=== PATIENT | female | born 1955 | race Caucasian/White ===

== ENCOUNTER → 2016-05-11 | Outpatient (REF) | payer BC ==
[2016-05-11 11:13] LABS: MICROSCOPIC INDICATED? MAN YES (NO)
[2016-05-11 11:14] LABS: MEAN CORPUSCULAR HEMOGLOBIN 31.6 pg (27.0-33.0); MEAN CORPUSCULAR HGB CONC 34.9 g/dl (32.0-36.5); MEAN CORPUSCULAR VOLUME 90.4 fl (80.0-96.0); RED CELL DISTRIBUTION WIDTH 12.3 % (11.5-14.5); WHITE BLOOD COUNT 8.3 K/mm3 (4.0-10.0)
[2016-05-11 11:26] LABS: BACTERIA, URINE MOD AMOUNT; HYALINE CAST, URINE NONE SEEN /lpf (0-1); SQUAMOUS EPITHELIAL CELL URINE LARGE AMOUNT /hpf (SMALL AMT)
[2016-05-11 11:27] LABS: MICROSCOPIC EXAM PERFORMED
[2016-05-11 11:39] LABS: ALBUMIN 3.6 GM/DL (3.2-5.2); ALBUMIN/GLOBULIN RATIO 1.09 (1.00-1.93); ALKALINE PHOSPHATASE 84 U/L (45-117); ALT/SGPT 23 U/L (12-78); ANION GAP 8 MEQ/L (8-16); AST/SGOT 16 U/L (15-37); BILIRUBIN,TOTAL 0.5 MG/DL (0.2-1.0); BLOOD UREA NITROGEN 11 MG/DL (7-18); CALCIUM LEVEL 8.9 MG/DL (8.5-10.1); CARBON DIOXIDE LEVEL 33 MEQ/L (21-32); CHLORIDE LEVEL 103 MEQ/L (98-107); CHOLESTEROL LEVEL 170 MG/DL (<200); GLOMERULAR FILTRATION RATE > 60.0 (>51); GLUCOSE, FASTING 124 MG/DL (70-105); POTASSIUM SERUM 3.5 MEQ/L (3.5-5.1); SODIUM LEVEL 144 MEQ/L (136-145); TOTAL PROTEIN 6.9 GM/DL (6.4-8.2); TRIGLYCERIDES LEVEL 207 MG/DL (<150)
== END ==
LOC: M SFHCLERA 08:11
PROVIDERS: ATTEND Family Medicine
DX: I10 Essential (primary) hypertension (principal); E78.2 Mixed hyperlipidemia; E55.9 Vitamin D deficiency, unspecified

== ENCOUNTER → 2016-06-29 | Outpatient (REF) | payer BC | LOC: M SFHCLERA 10:25 | PROVIDERS: ATTEND Family Medicine | DX: Z53.8 Procedure and treatment not carried out for other reasons (principal); R73.02 Impaired glucose tolerance (oral); E78.2 Mixed hyperlipidemia; E55.9 Vitamin D deficiency, unspecified ==

== ENCOUNTER → 2016-08-31 | Outpatient (REF) | payer BC ==
[2016-08-31 11:31] LABS: MEAN CORPUSCULAR HEMOGLOBIN 31.8 pg (27.0-33.0); MEAN CORPUSCULAR HGB CONC 34.3 g/dl (32.0-36.5); MEAN CORPUSCULAR VOLUME 92.8 fl (80.0-96.0); RED CELL DISTRIBUTION WIDTH 12.6 % (11.5-14.5); WHITE BLOOD COUNT 6.6 K/mm3 (4.0-10.0)
[2016-08-31 11:46] LABS: ALBUMIN 3.5 GM/DL (3.2-5.2); ALBUMIN/GLOBULIN RATIO 1.13 (1.00-1.93); ALKALINE PHOSPHATASE 73 U/L (45-117); ALT/SGPT 28 U/L (12-78); ANION GAP 7 MEQ/L (8-16); AST/SGOT 20 U/L (15-37); BILIRUBIN,TOTAL 0.5 MG/DL (0.2-1.0); BLOOD UREA NITROGEN 11 MG/DL (7-18); CALCIUM LEVEL 8.8 MG/DL (8.5-10.1); CARBON DIOXIDE LEVEL 31 MEQ/L (21-32); CHLORIDE LEVEL 105 MEQ/L (98-107); CHOLESTEROL LEVEL 166 MG/DL (<200); CREATININE FOR GFR 0.62 MG/DL (0.55-1.02); GLOMERULAR FILTRATION RATE > 60.0 (>51); GLUCOSE, FASTING 123 MG/DL (70-105); POTASSIUM SERUM 3.7 MEQ/L (3.5-5.1); SODIUM LEVEL 143 MEQ/L (136-145); TOTAL PROTEIN 6.6 GM/DL (6.4-8.2); TRIGLYCERIDES LEVEL 170 MG/DL (<150)
== END ==
LOC: M SFHCLERA 08:11
PROVIDERS: ATTEND Family Medicine
DX: R73.02 Impaired glucose tolerance (oral) (principal); E78.2 Mixed hyperlipidemia; E55.9 Vitamin D deficiency, unspecified

== ENCOUNTER → 2017-02-01 | Outpatient (CLI) | payer BC ==
--- NOTE | 2017-02-01 15:24 | REP ---
THORACIC SPINE, THREE VIEWS: HISTORY: Pain. There is no acute fracture or subluxation. The intervertebral discs are normal in height. Anterior osteophytes are present in the mid and lower thoracic spine. IMPRESSION: Degenerative change as described above. Signed by Kody Casiano MD 02/01/2017 03:30 P
--- NOTE | 2017-02-01 16:17 | REP ---
CERVICAL SPINE, SEVEN VIEWS: HISTORY: Neck pain. The cervical spine is visualized from C1-2 to C6-7 level in the lateral radiographs. There is no acute fracture or subluxation. The C4-5 through C5-6 intervertebral discs are decreased in height consistent with disc degeneration. Osteophytes are present on the C4 through 6. There is narrowing of the C5 neural foramina secondary to uncinate process hypertrophy. IMPRESSION: Degenerative change as described above. Signed by Kody Casiano MD 02/01/2017 04:19 P
== END ==
LOC: M WUC 14:21
PROVIDERS: ATTEND Family Medicine
DX: M51.36 Other intervertebral disc degeneration, lumbar region (principal); M54.2 Cervicalgia; M54.6 Pain in thoracic spine

== ENCOUNTER → 2017-03-22 | Outpatient (CLI) | payer OTHER ==
[~2017-03-22] MED LIST: CHLO25TA PO; LOSA50TA20 PO; POTA1TAB14 PO; PRAV40TA2 PO; PROZ20CA11 PO
[2017-03-22 08:53] LABS: BASO % 0.6 % (0.0-1.0); EOS # 0.4 10^3/uL (0.0-0.50); EOS % 5.7 % (0.0-3.0); IMMATURE GRANULOCYTE % 0.4 % (0-0); LYMPH # 2.4 10^3/uL (1.5-4.5); LYMPH % 33.4 % (24.0-44.0); MEAN CORPUSCULAR HEMOGLOBIN 30.5 pg (27.0-33.0); MEAN CORPUSCULAR HGB CONC 34.4 g/dl (32.0-36.5); MEAN CORPUSCULAR VOLUME 88.6 fl (80.0-96.0); MONO # 0.6 10^3/uL (0.0-0.8); MONO % 8.1 % (0.0-5.0); NEUTROPHILS # 3.7 10^3/uL (1.8-7.7); NEUTROPHILS % 51.8 % (36.0-66.0); PLATELET COUNT, AUTOMATED 273 10^3/uL (150-450); RED CELL DISTRIBUTION WIDTH 12.7 % (11.5-14.5); WHITE BLOOD COUNT 7.2 10^3/uL (4.0-10.0)
[2017-03-22 09:25] LABS: ALBUMIN 3.4 GM/DL (3.2-5.2); ALBUMIN/GLOBULIN RATIO 1.03 (1.00-1.93); ALKALINE PHOSPHATASE 67 U/L (45-117); ALT/SGPT 29 U/L (12-78); ANION GAP 7 MEQ/L (8-16); AST/SGOT 22 U/L (7-37); BILIRUBIN,TOTAL 0.5 MG/DL (0.2-1.0); BLOOD UREA NITROGEN 16 MG/DL (7-18); CALCIUM LEVEL 8.7 MG/DL (8.5-10.1); CARBON DIOXIDE LEVEL 31 MEQ/L (21-32); CHLORIDE LEVEL 103 MEQ/L (98-107); CREATININE FOR GFR 0.58 MG/DL (0.55-1.02); GLOMERULAR FILTRATION RATE > 60.0 (>51); GLUCOSE, FASTING 123 MG/DL (70-105); POTASSIUM SERUM 3.1 MEQ/L (3.5-5.1); SODIUM LEVEL 141 MEQ/L (136-145); TOTAL PROTEIN 6.7 GM/DL (6.4-8.2)
--- NOTE | 2017-03-22 12:11 | ECGEPIP ---
Stationary ECG Study [facility] Test Date: 2017-03-22 Pat Name: ADE WAHL Department: Room: - Gender: F [employer] Supervisor: CLIFF : 1955 Requested By: Bart Rivera Order Number: [id number] Reading MD: Litzy Raymond Measurements Intervals [place] Rate: 66 P: 46 [place]: 157 QRS: -1 QRSD: 96 T: 17 QT: 430 QTc: 454 Interpretive Statements SINUS RHYTHM POSSIBLE OLD IWMI Left ventricular hypertrophy SUGGESTED SIMILAR TO 04/19/15 Electronically Signed On 03-22-2017 12:11:40 EST by Litzy Raymond
== END ==
LOC: M LAB 08:07
PROVIDERS: ATTEND Podiatrist
DX: Z01.818 Encounter for other preprocedural examination (principal)

== ENCOUNTER 2017-04-04 10:18 | Day surgery (SDC) | payer OTHER ==
[~2017-04-04] VITALS: Ht 165.1 cm; Wt 112.4 kg
[~2017-04-04 10:18] MED LIST changes: +LR 1,000 ML IV ONE
[2017-04-04] MEDS ORDERED: KETOROLAC 60 MG/2 ML VIAL (J1885) As Ordered ONE (12:42)
[2017-04-04] MEDS ORDERED: LIDOCAINE 2% INJ 100 MG/5 ML SDV (FOR ANES.) As Ordered ONE (12:42)
[2017-04-04] MEDS ORDERED: ONDANSETRON 4MG/2ML VIAL (J2405) As Ordered ONE (12:42)
[2017-04-04] MEDS ORDERED: fentaNYL 100 MCG/2 ML INJECTION (J3010) As Ordered ONE (12:42)
[2017-04-04] MEDS ORDERED: PROPOFOL 200 MG/20 ML VIAL As Ordered ONE ×3 (12:42→14:41)
[2017-04-04] MEDS ORDERED: MIDAZOLAM INJ 2 MG/2 ML VIAL (J2250) As Ordered ONE (12:43)
[2017-04-04] MEDS ORDERED: BUPIVACAINE HCL 0.5% 30 ML VIAL As Ordered ONE (13:16)
[2017-04-04] MEDS ORDERED: dexameTHASONE 4 MG/ML 1ML VIAL (J1100) As Ordered ONE (13:16)
[2017-04-04] MEDS ORDERED: LIDOCAINE 2% MDV 20 ML VIAL As Ordered ONE (13:16)
[2017-04-04] MEDS ORDERED: BACITRACIN PWD 50,000 UNITS VIAL As Ordered ONE (13:17)
[2017-04-04] MEDS ORDERED: NEOSPORIN GU IRRIG 20 ML VIAL As Ordered ONE (13:17)
[2017-04-04] MEDS ORDERED: KETAMINE HCL 200 MG/20 ML VIAL As Ordered ONE (14:03)
[2017-04-04] MEDS ORDERED: ePHEDrine SULFATE 25 MG/5 ML(5MG/ML) SYRINGE As Ordered ONE (14:20)
[2017-04-04 16:15] VITALS: BP 138/68
[2017-04-04] MEDS ORDERED: LR 1,000 ML IV SCH (16:15)
[2017-04-04] MEDS ORDERED: PERCOCET 5MG/325MG TAB PO PRN (16:15)
[2017-04-04] MEDS ORDERED: fentaNYL 100 MCG/2 ML INJECTION (J3010) IV PRN (16:15)
--- NOTE | 2017-04-04 17:15 | REP ---
RIGHT FOOT SERIES, PORTABLE: Three portable views of the right foot are performed. The patient has had surgery in the distal first metatarsal. There is a metallic screw at that location. The structures are well aligned. There is mild inferior calcaneal spurring. Signed by Leif Vasquez MD 04/05/2017 04:55 P
--- NOTE | 2017-04-04 20:38 | RO ---
DATE OF PROCEDURE: 04/04/2017 PREPROCEDURE DIAGNOSIS: Hallux valgus metatarsus primus varus deformity right foot and dorsal exostosis second metatarsocuneiform joint right foot. POSTPROCEDURE DIAGNOSIS: PROCEDURE: SURGEON: Dr. Bart Rivera PURCHASING ENGINEER: None. ANESTHESIA: Local MAC. HEMOSTASIS: Ankle pneumatic tourniquet at 200 mmHg for 51 minutes at the right ankle. HARDWARE UTILIZED: Leigh Dart-Fire 3.0 x 20 mm cannulated compression screw and bone wax. DESCRIPTION OF PROCEDURE: On 04/04/2017 this 61-year-old white female was taken from her hospital room to the operating room and placed on the operating table in supine position. Following the induction of IV sedation and local and regional anesthesia, the right lower extremity was prepped and draped in the usual aseptic manner. The right lower extremity was elevated 45 degrees from the horizontal plane for the purpose of preoperative exsanguination of the limb. During this three minute time period, an ankle pneumatic tourniquet was applied just proximal to the medial and lateral malleolus, well-padded site. To further exsanguinate the limb, a West's Esmarch bandage was placed circumferentially, extending from digits to distal edge of the ankle pneumatic tourniquet, was rapidly inflated to 200 mmHg. Sterile draping was completed, and the following procedure was performed: PANDA BUNIONECTOMY WITH INTERNAL SCREW FIXATION 3.0 mm x 20 mm x 1, RIGHT FOOT: Attention was directed to the patient's right foot. There was noted to be a hallux valgus deformity. At this time, a 6 cm incision was placed over the first metatarsophalangeal joint medial to the extensor tendon. The incision was deepened through subcutaneous tissues and all coursing venous tributaries were identified, underscored, clamped, cut, ligated or electrocoagulated as necessary. Linear capsulotomy was then performed in the same plane as the original skin incision. The capsular and periosteal structures were dissected free in one continuous layer creating a capsular periosteal type envelope. The hypertrophied medial eminence was then osteotomized from distal to proximal, through and through, exiting medial to the sesamoidal groove. Attention was then directed into the first intermetatarsal space where dissection was carried down to the level of the conjoined tendon, which was sharply dissected free from the fibular sesamoid. A V-shaped osteotomy was then performed in the distal metaphysis of the first metatarsal with a long plantar and short dorsal wing. Upon creation of this osteotomy, capital fragment was transposed approximately 40% of the width of the shaft of the first metatarsal and fixated with a 3.0 x 20 mm cannulated compression screw. The screw did not penetrate the inferior cartilage on direct visualization. The redundant cortical spike was then osteotomized from dorsal to plantar, through and through. Medial surface was rasped to a smooth contour. The wound was flushed with copious amounts of dilute bacitracin, neomycin and polymyxin B solution. Attention was directed towards closure where the capsular structures were coapted and maintained with #2-0 Monocryl in a simple interrupted type fashion. Subcutaneous tissues were coapted and maintained utilizing #4-0 Monocryl in a simple interrupted type fashion. Skin incision was coapted and maintained utilizing #5-0 Monocryl in a continuous subcuticular type fashion. Attention was then directed to the dorsal surface of the foot where there was noted to be an exostosis over the second metatarsocuneiform joint. An incision was then placed over this dorsal exostosis and dissection was then carried down to the extensor digitorum brevis muscle, which was then retracted in a lateral direction. The neurovascular bundle was visualized. Initially was planned on a medial retraction; however, due to placement of the branches off the medial and innervation branch to the extensor hallucis brevis muscle, it required a lateral retraction and was retracted out of the way. Periosteal incision was then placed over the second metatarsocuneiform joint, exposing the large exostosis of the second metatarsocuneiform joint. Utilizing curved osteotome and mallets, this bone was osteotomized. Utilizing a rongeur, the bone was remodeled and a handheld rasp was utilized to rasp to a smooth contour. The wound was flushed with copious amounts of dilute bacitracin, neomycin and polymyxin B solution. Bone wax was placed over the osteal surfaces. The extensor digitorum brevis muscle was then placed back into the surgical wound after retraction. All bleeders as encountered were electrocoagulated; however, no damage to the dorsalis pedis artery or deep peroneal nerve was noted. Subcutaneous tissues were coapted and maintained with #4-0 Monocryl in a simple interrupted type fashion. Skin incision was coapted and maintained utilizing #4-0 Prolene in a simple interrupted and horizontal mattress type fashion. Following the completion of the surgical procedure, 4 mg of dexamethasone sodium phosphate was instilled proximal to surgical site. Attention was directed towards bandaging where a sterile compressive bandage was applied consisting of Adaptic, 4 x 4's, 4 x 4 splints, Tootie, Kerlix and Coban. The ankle pneumatic tourniquet was rapidly deflated and instantaneous capillary filling time was noted in digits 1 through 5 of the patient's right foot. The patient having apparently tolerated the surgical procedure well was taken from the operating room (OR) to the recovery room, vital signs stable, patient afebrile, further monitoring by the anesthesia department. All surgical specimens removed during the operative procedure were sent to Pathology for gross and microscopic examination. Postoperative instructions given upon discharge.
== END 2017-04-04 16:29 | disposition home or self-care (01) ==
LOC: M SDC 10:18
PROVIDERS: ATTEND Podiatrist
DX: M20.11 Hallux valgus (acquired), right foot (principal); M25.774 Osteophyte, right foot; M25.775 Osteophyte, left foot; I10 Essential (primary) hypertension; E78.00 Pure hypercholesterolemia, unspecified; M54.9 Dorsalgia, unspecified; F41.9 Anxiety disorder, unspecified; R06.83 Snoring; K21.0 Gastro-esophageal reflux disease with esophagitis; E55.9 Vitamin D deficiency, unspecified; E66.9 Obesity, unspecified; M17.0 Bilateral primary osteoarthritis of knee; G47.33 Obstructive sleep apnea (adult) (pediatric); N39.3 Stress incontinence (female) (male); B37.3 Candidiasis of vulva and vagina; R73.01 Impaired fasting glucose; F32.9 Major depressive disorder, single episode, unspecified; J44.9 Chronic obstructive pulmonary disease, unspecified; E78.2 Mixed hyperlipidemia; Z79.899 Other long term (current) drug therapy; Z78.0 Asymptomatic menopausal state; Z87.891 Personal history of nicotine dependence; Z96.653 Presence of artificial knee joint, bilateral; Z85.828 Personal history of other malignant neoplasm of skin; Z87.440 Personal history of urinary (tract) infections; Z97.8 Presence of other specified devices
CPT/HCPCS: 28122; 28296; 73630; 88300; 97116; C1713

== ENCOUNTER → 2017-05-03 | Outpatient (CLI) | payer OTHER | LOC: M WHC 09:59 | DX: Z12.31 Encounter for screening mammogram for malignant neoplasm of breast (principal) | CPT/HCPCS: 77067 ==

== ENCOUNTER → 2017-05-17 | Outpatient (CLI) | payer OTHER ==
[2017-05-17 09:58] LABS: BASO % 0.5 % (0.0-1.0); EOS # 0.2 10^3/uL (0.0-0.50); EOS % 2.9 % (0.0-3.0); HEMATOCRIT 44.1 % (36.0-47.0); HEMOGLOBIN 15.2 g/dl (12.0-16.0); IMMATURE GRANULOCYTE % 0.3 % (0-0); LYMPH # 2.2 10^3/uL (1.5-4.5); LYMPH % 29.2 % (24.0-44.0); MEAN CORPUSCULAR HEMOGLOBIN 31.3 pg (27.0-33.0); MEAN CORPUSCULAR HGB CONC 34.5 g/dl (32.0-36.5); MEAN CORPUSCULAR VOLUME 90.7 fl (80.0-96.0); MONO # 0.6 10^3/uL (0.0-0.8); MONO % 7.9 % (0.0-5.0); NEUTROPHILS # 4.5 10^3/uL (1.8-7.7); NEUTROPHILS % 59.2 % (36.0-66.0); PLATELET COUNT, AUTOMATED 246 10^3/uL (150-450); RED BLOOD COUNT 4.86 10^6/uL (4.00-5.40); RED CELL DISTRIBUTION WIDTH 12.4 % (11.5-14.5); WHITE BLOOD COUNT 7.6 10^3/uL (4.0-10.0)
[2017-05-17 10:29] LABS: ALBUMIN 3.8 GM/DL (3.2-5.2); ALBUMIN/GLOBULIN RATIO 1.23 (1.00-1.93); ALKALINE PHOSPHATASE 77 U/L (45-117); ALT/SGPT 25 U/L (12-78); ANION GAP 6 MEQ/L (8-16); AST/SGOT 16 U/L (7-37); BILIRUBIN,TOTAL 0.6 MG/DL (0.2-1.0); BLOOD UREA NITROGEN 14 MG/DL (7-18); CALCIUM LEVEL 9.1 MG/DL (8.5-10.1); CARBON DIOXIDE LEVEL 32 MEQ/L (21-32); CHLORIDE LEVEL 102 MEQ/L (98-107); CREATININE FOR GFR 0.62 MG/DL (0.55-1.02); GLOMERULAR FILTRATION RATE > 60.0 (>51); GLUCOSE, FASTING 114 MG/DL (70-100); MAGNESIUM LEVEL 2.1 MG/DL (1.8-2.4); SODIUM LEVEL 140 MEQ/L (136-145); TOTAL PROTEIN 6.9 GM/DL (6.4-8.2)
[2017-05-17 10:41] LABS: ESTIMATED AVERAGE GLUCOSE 128 MG/DL (60-110); HEMOGLOBIN A1c 6.1 %
[2017-05-17 10:55] LABS: VITAMIN B12 LEVEL 554 PG/ML (247-911)
== END ==
LOC: M WUC 08:12
DX: I10 Essential (primary) hypertension (principal)
CPT/HCPCS: 83735

== ENCOUNTER → 2017-06-14 | Outpatient (CLI) | payer OTHER | LOC: M RAD 12:45 | DX: M79.89 Other specified soft tissue disorders (principal); M79.661 Pain in right lower leg | CPT/HCPCS: 93971 ==

== ENCOUNTER → 2017-09-20 | Outpatient (CLI) | payer OTHER ==
[2017-09-20 11:25] LABS: ALBUMIN 3.5 GM/DL (3.2-5.2); ALBUMIN/GLOBULIN RATIO 1.21 (1.00-1.93); ALKALINE PHOSPHATASE 91 U/L (45-117); ALT/SGPT 25 U/L (12-78); ANION GAP 7 MEQ/L (8-16); AST/SGOT 16 U/L (7-37); BILIRUBIN,TOTAL 0.5 MG/DL (0.2-1.0); BLOOD UREA NITROGEN 17 MG/DL (7-18); C REACTIVE PROTEIN QUANTITATIV 0.31 MG/DL (0.00-0.30); CALCIUM LEVEL 8.2 MG/DL (8.8-10.2); CARBON DIOXIDE LEVEL 30 MEQ/L (21-32); CHLORIDE LEVEL 104 MEQ/L (98-107); CHOLESTEROL LEVEL 117 MG/DL (<200); CHOLESTEROL RISK RATIO 2.853 (<5); CPK CREATINE PHOSPHOKINASE 182 U/L (26-192); CREATININE FOR GFR 0.63 MG/DL (0.55-1.30); GLOMERULAR FILTRATION RATE > 60.0 (>45); GLUCOSE, FASTING 121 MG/DL (70-100); HDL CHOLESTEROL 41 MG/DL (>40); LDL CHOLESTEROL 50.6 MG/DL (<100); NON-HDL-C 76 MG/DL; POTASSIUM SERUM 3.1 MEQ/L (3.5-5.1); SODIUM LEVEL 141 MEQ/L (136-145); TOTAL PROTEIN 6.4 GM/DL (6.4-8.2); TRIGLYCERIDES LEVEL 127 MG/DL (<150)
[2017-09-20 11:52] LABS: ESTIMATED AVERAGE GLUCOSE 134 MG/DL (60-110); HEMOGLOBIN A1c 6.3 %
[2017-09-20 12:41] LABS: PTH INTACT 98.5 PG/ML (18.5-88.0); TOTAL 25(OH) VITAMIN D 31.2 NG/ML (30.0-100.0)
[2017-09-21 14:10] LABS: INSULIN LEVEL 23.2 uIU/mL (2.6-24.9)
== END ==
LOC: M WUC 08:27
DX: E78.2 Mixed hyperlipidemia (principal); R73.01 Impaired fasting glucose
CPT/HCPCS: 82550

== ENCOUNTER → 2017-11-01 | Outpatient (CLI) | payer OTHER | LOC: M RAD 09:57 | DX: R22.41 Localized swelling, mass and lump, right lower limb (principal) | CPT/HCPCS: 73721 ==

== ENCOUNTER → 2018-01-17 | Outpatient (CLI) | payer OTHER ==
[2018-01-17 09:26] LABS: ALBUMIN 3.7 GM/DL (3.2-5.2); ALBUMIN/GLOBULIN RATIO 1.32 (1.00-1.93); ALKALINE PHOSPHATASE 81 U/L (45-117); ALT/SGPT 22 U/L (12-78); ANION GAP 10 MEQ/L (8-16); AST/SGOT 15 U/L (7-37); BILIRUBIN,TOTAL 0.5 MG/DL (0.2-1.0); BLOOD UREA NITROGEN 14 MG/DL (7-18); CALCIUM LEVEL 9.1 MG/DL (8.8-10.2); CARBON DIOXIDE LEVEL 28 MEQ/L (21-32); CHLORIDE LEVEL 105 MEQ/L (98-107); CREATININE FOR GFR 0.59 MG/DL (0.55-1.30); FREE T4 0.98 NG/DL (0.76-1.46); GLOMERULAR FILTRATION RATE > 60.0 (>45); GLUCOSE, FASTING 112 MG/DL (70-100); MAGNESIUM LEVEL 1.9 MG/DL (1.8-2.4); POTASSIUM SERUM 3.1 MEQ/L (3.5-5.1); SODIUM LEVEL 143 MEQ/L (136-145); THYROID STIMULATING HORMONE 0.934 uIU/ML (0.358-3.740); TOTAL PROTEIN 6.5 GM/DL (6.4-8.2)
[2018-01-17 09:29] LABS: PTH INTACT 55.8 PG/ML (18.5-88.0)
[2018-01-17 09:38] LABS: ESTIMATED AVERAGE GLUCOSE 128 MG/DL (60-110); HEMOGLOBIN A1c 6.1 %
== END ==
LOC: M WUC 08:08
DX: R73.01 Impaired fasting glucose (principal); I10 Essential (primary) hypertension; E55.9 Vitamin D deficiency, unspecified
CPT/HCPCS: 83735

== ENCOUNTER → 2018-06-11 | Outpatient (REF) | payer OTHER ==
[~2018-06-11] MED LIST changes: -LOSA50TA20 PO; +LOSA50TA88 PO; -LR 1,000 ML IV ONE
[2018-06-11 12:58] LABS: BASO % 0.2 % (0.0-1.0); EOS % 0.1 % (0.0-3.0); HEMATOCRIT 46.8 % (36.0-47.0); HEMOGLOBIN 15.7 g/dl (12.0-15.5); LYMPH # 1.7 10^3/uL (1.5-4.5); LYMPH % 17.5 % (24.0-44.0); MEAN CORPUSCULAR HEMOGLOBIN 30.6 pg (27.0-33.0); MEAN CORPUSCULAR HGB CONC 33.5 g/dl (32.0-36.5); MEAN CORPUSCULAR VOLUME 91.2 fl (80.0-96.0); MONO # 0.8 10^3/uL (0.0-0.8); MONO % 7.8 % (0.0-5.0); NEUTROPHILS # 7.2 10^3/uL (1.8-7.7); NEUTROPHILS % 73.7 % (36.0-66.0); PLATELET COUNT, AUTOMATED 253 10^3/uL (150-450); RED BLOOD COUNT 5.13 10^6/uL (4.00-5.40); WHITE BLOOD COUNT 9.8 10^3/uL (4.0-10.0)
[2018-06-11 13:29] LABS: ALBUMIN 3.8 GM/DL (3.2-5.2); ALT/SGPT 21 U/L (12-78); BILIRUBIN,TOTAL 0.5 MG/DL (0.2-1.0); BLOOD UREA NITROGEN 18 MG/DL (7-18); CALCIUM LEVEL 9.4 MG/DL (8.8-10.2); CARBON DIOXIDE LEVEL 27 MEQ/L (21-32); CHLORIDE LEVEL 102 MEQ/L (98-107); CREATININE FOR GFR 0.56 MG/DL (0.55-1.30); GLOMERULAR FILTRATION RATE > 60.0 (>45); GLUCOSE, FASTING 81 MG/DL (70-100); POTASSIUM SERUM 3.6 MEQ/L (3.5-5.1); SODIUM LEVEL 138 MEQ/L (136-145); TOTAL PROTEIN 7.1 GM/DL (6.4-8.2)
== END ==
LOC: M SFHCPLAZ 10:04
PROVIDERS: ATTEND Physician Assistant Medical
DX: I10 Essential (primary) hypertension (principal)

== ENCOUNTER → 2018-06-11 | Outpatient (CLI) | payer OTHER ==
--- NOTE | 2018-06-12 02:32 | REP ---
Clinical: Influenza . Comparison: 04/19/2015 . Technique: PA and lateral. Findings: The mediastinum and cardiac silhouette are normal. The lung peng are clear and without acute consolidation, effusion, or pneumothorax. The skeletal structures are intact and normal. Impression: 1. No acute cardiopulmonary process. Electronically Signed by Ad Adkins MD 06/12/2018 02:23 A
== END ==
LOC: M SMT 10:19
PROVIDERS: ATTEND Physician Assistant Medical
DX: J11.1 Influenza due to unidentified influenza virus with other respiratory manifestations (principal)

== ENCOUNTER → 2018-06-27 | Outpatient (CLI) | payer OTHER ==
[2018-06-27 12:41] LABS: BASO % 0.4 % (0.0-1.0); EOS # 0.3 10^3/uL (0.0-0.50); EOS % 4.4 % (0.0-3.0); HEMATOCRIT 41.3 % (36.0-47.0); HEMOGLOBIN 13.8 g/dl (12.0-15.5); LYMPH # 1.9 10^3/uL (1.5-4.5); MEAN CORPUSCULAR HEMOGLOBIN 30.8 pg (27.0-33.0); MEAN CORPUSCULAR HGB CONC 33.4 g/dl (32.0-36.5); MEAN CORPUSCULAR VOLUME 92.2 fl (80.0-96.0); MONO # 0.6 10^3/uL (0.0-0.8); MONO % 8.7 % (0.0-5.0); NEUTROPHILS # 3.9 10^3/uL (1.8-7.7); NEUTROPHILS % 58.1 % (36.0-66.0); PLATELET COUNT, AUTOMATED 248 10^3/uL (150-450); RED BLOOD COUNT 4.48 10^6/uL (4.00-5.40); WHITE BLOOD COUNT 6.8 10^3/uL (4.0-10.0)
[2018-06-27 12:43] LABS: ALBUMIN 3.3 GM/DL (3.2-5.2); ALT/SGPT 15 U/L (12-78); BILIRUBIN,TOTAL 0.4 MG/DL (0.2-1.0); BLOOD UREA NITROGEN 14 MG/DL (7-18); CARBON DIOXIDE LEVEL 32 MEQ/L (21-32); CHLORIDE LEVEL 103 MEQ/L (98-107); CREATININE FOR GFR 0.63 MG/DL (0.55-1.30); GLOMERULAR FILTRATION RATE > 60.0 (>45); GLUCOSE, FASTING 107 MG/DL (70-100); POTASSIUM SERUM 3.4 MEQ/L (3.5-5.1); SODIUM LEVEL 143 MEQ/L (136-145); TOTAL PROTEIN 6.3 GM/DL (6.4-8.2)
[2018-06-27 12:51] LABS: VITAMIN B12 LEVEL 1113 PG/ML (247-911)
== END ==
LOC: M WUC 08:20
PROVIDERS: ATTEND Family Medicine
DX: I10 Essential (primary) hypertension (principal); R73.01 Impaired fasting glucose

== ENCOUNTER → 2018-08-08 | Outpatient (CLI) | payer OTHER ==
--- NOTE | 2018-08-08 10:45 | REPMRS ---
Patient History The patient states she has not had a clinical breast exam in over a year. Patient is postmenopausal and has history of basal cell skin cancer at age 51. No known family history of cancer. No Hormone Replacement Therapy Digital Woman Screen Mammo: August 08, 2018 - Exam #: [id number] Bilateral CC and MLO view(s) were taken. Technologist: Bibiana Sheridan, Technologist Prior study comparison: May 03, 2017, digital woman screen mammo performed at [facility]. April 06, 2016, digital woman screen mammo performed at [facility]. July 02, 2014, digital woman screen mammo performed at [facility]. FINDINGS: There are scattered fibroglandular densities. There is a well-circumscribed oval-shaped 10 mm nodule in the right breast which does not appear to have been present previously. This merits further evaluation. It is approximately in the 6 o'clock position inferiorly. There is a pacemaker power plant projecting over the ___ axilla on the MLO view.Positioning is suboptimal due to patient factors; best possible views were obtained.There has been no change in the appearance of the mammogram from the prior studies. There is a mild amount of scattered fibroglandular density which is fairly symmetric. There is no interval development of dominant mass, architectural distortion, or clustered microcalcification suggestive of malignancy. 3-D tomosynthesis shows no additional findings. Assessment: BI-RADS/ACR category 0 mammogram, Incomplete: Need additional imaging evaluation and/or prior mammograms for comparison. Recommendation Ultrasound and special view mammogram of the right breast. This patient's Lifetime Breast Cancer RIsk is estimated at 5.4 %. This mammogram was interpreted with the aid of an FDA-approved computer-aided dectection system. Electronically Signed By: Sorin Seals MD 08/08/18 [id number]
--- NOTE | 2018-08-11 11:15 | DEXA ---
AP SPINE L1 - L4 1.365 1.4 2.6 LT FEMUR TOTAL 1.055 0.4 1.3 LT NECK 0.935 -0.7 0.5 RT FEMUR TOTAL 1.107 0.8 1.8 RT NECK 0.970 -0.5 0.8 TOTAL BODY TOTAL OTHER COMMENTS: Normal bone densitometry of the spine and hips. The density of the spine has increased 12.5% since the initial exam on 10/09/2007. The spine density has increased 16.3% since the most recent exam on 07/08/2013. The density of the left hip has increased 5.7% since the initial exam on 10/09/2007. The density of the left hip has increased 0.8% since the most recent exam on 07/08/2013. The density of the right hip has increased 7.3% since the initial exam on 10/09/2007. The density of the right hip has increased 4.2% since the most recent exam on 07/08/2013. FOLLOW-UP: Recommendation for the next bone density exam: 2 years. GAURI
== END ==
LOC: M WHC 09:40
PROVIDERS: ATTEND Family Medicine
DX: Z12.31 Encounter for screening mammogram for malignant neoplasm of breast (principal); M85.80 Other specified disorders of bone density and structure, unspecified site

== ENCOUNTER → 2018-08-22 | Outpatient (CLI) | payer OTHER ==
--- NOTE | 2018-08-22 11:22 | REP ---
DIAGNOSTIC MAMMOGRAM RIGHT BREAST WITH RIGHT BREAST ULTRASOUND: Spot compression views right breast performed and are correlated with the prior mammogram 08/08/2018. The spot compression views confirm the presence of an oval nodule at 6-o'clock position in the right breast which measures 9 x 5 x 5 mm. This is a complex cystic lesion with heterogeneous internal echotexture. Since this is not a simple cyst, I recommend ultrasound-guided biopsy. IMPRESSION: BIRADS 4: BI-RADS/ACR category 4 mammogram. Suspicious Abnormality - biopsy should be considered. ACR 4 suspicious. Complex cystic lesion 6-o'clock position right breast 9 x 5 x 5 mm. Recommend ultrasound-guided biopsy. Postprocedure mammogram should also be performed. Patient letter M4. Electronically Signed by Leif Vasquez MD 08/22/2018 01:33 P
== END ==
LOC: M RAD 08:50
PROVIDERS: ATTEND Family Medicine
DX: N63.14 Unspecified lump in the right breast, lower inner quadrant (principal)

== ENCOUNTER → 2018-09-04 | Outpatient (CLI) | payer OTHER ==
[~2018-09-04] MED LIST changes: +ATOR1TAB21 PO; +CRAN450T4 PO; +IBUP-1022 PO; +LIDOCAINE 1% MDV 20ML VIAL As Ordered ONE; +LOSA100T50 PO; +METF750T PO; +OMEP-218 PO; +TUMS500C PO; +VITA500054 PO; +duo neb INH
--- NOTE | 2018-09-04 14:22 | REP ---
Digital diagnostic unilateral right breast mammography with CAD: Two views. History: Clip placement mammography. The patient is status post ultrasound-guided needle biopsy procedure and marker clip placement. Comparison mammography August 08, 2018. Findings: CC and true MLO views of the right breast demonstrate that the marker clip is in good position at the site where previous mammography showed the small nodular opacity. Impression: Marker clip in good position. This mammogram was interpreted with the aid of an FDA-approved computer-aided detection system. Electronically Signed by Emeterio Seals MD 09/04/2018 08:03 P
--- NOTE | 2018-09-04 20:38 | REP ---
Ultrasound-guided right breast biopsy. The procedure was performed by TOMASA Ragland, under the direct supervision of Dr. Seals. The patient has a history of a a complex cystic lesion with heterogeneous internal echotexture which measures 9 x 5 x 5 mm, on an ultrasound dated 08/22/2018. The risks and benefits of the procedure were explained to the patient and informed consent was obtained both verbally and written. Directly prior to the start of the procedure, a formal timeout was completed in the procedure room. The right breast cyst was localized using ultrasound guidance. The skin was prepped and draped in a sterile fashion. 14 ml 1% lidocaine was used as a local anesthetic. Using ultrasound guidance a 13-gauge suction assisted Mammotome needle was inserted and 2 core biopsy samples were obtained, before the lesion disappeared. A marker clip was placed at the biopsy site. The patient tolerated the procedure well and there were no immediate complications. After the appropriate monitored convalescence the patient was discharged from the department. Reviewed by TOMASA Lucero 09/04/2018 03:16 P Electronically Signed by Emeterio Seals MD 09/04/2018 08:29 P
== END ==
LOC: M RADPRO 11:26
PROVIDERS: ATTEND Nurse Practitioner Family
DX: N60.11 Diffuse cystic mastopathy of right breast (principal); Z79.899 Other long term (current) drug therapy

== ENCOUNTER → 2018-10-26 | Outpatient (REF) | payer OTHER ==
[~2018-10-26] MED LIST changes: -LIDOCAINE 1% MDV 20ML VIAL As Ordered ONE
== END ==
LOC: M LAB REF 09:35
PROVIDERS: ATTEND Physician Assistant
DX: N39.0 Urinary tract infection, site not specified (principal)

== ENCOUNTER → 2018-11-10 | Outpatient (REF) | payer OTHER | LOC: M LAB REF 10:26 | PROVIDERS: ATTEND Physician Assistant | DX: R39.9 Unspecified symptoms and signs involving the genitourinary system (principal) ==

== ENCOUNTER → 2018-11-21 | Outpatient (CLI) | payer OTHER ==
[2018-11-21 09:41] LABS: ALBUMIN 3.5 GM/DL (3.2-5.2); ALT/SGPT 17 U/L (12-78); BILIRUBIN,TOTAL 0.4 MG/DL (0.2-1.0); BLOOD UREA NITROGEN 15 MG/DL (7-18); C REACTIVE PROTEIN QUANTITATIV < 0.30 MG/DL (0.00-0.30); CALCIUM LEVEL 8.7 MG/DL (8.8-10.2); CARBON DIOXIDE LEVEL 31 MEQ/L (21-32); CHLORIDE LEVEL 106 MEQ/L (98-107); CHOLESTEROL LEVEL 125 MG/DL (<200); CHOLESTEROL RISK RATIO 2.551 (<5); CPK CREATINE PHOSPHOKINASE 101 U/L (26-192); CREATININE FOR GFR 0.73 MG/DL (0.55-1.30); GLOMERULAR FILTRATION RATE > 60.0 (>45); GLUCOSE, FASTING 82 MG/DL (70-100); HDL CHOLESTEROL 49 MG/DL (>40); LDL CHOLESTEROL 55 MG/DL (<100); MAGNESIUM LEVEL 2.3 MG/DL (1.8-2.4); NON-HDL-C 76 MG/DL; POTASSIUM SERUM 3.6 MEQ/L (3.5-5.1); SODIUM LEVEL 143 MEQ/L (136-145); TOTAL PROTEIN 6.4 GM/DL (6.4-8.2); TRIGLYCERIDES LEVEL 104 MG/DL (<150)
[2018-11-21 10:09] LABS: HEMOGLOBIN A1c 5.9 %
== END ==
LOC: M WUC 08:07
PROVIDERS: ATTEND Family Medicine
DX: E78.2 Mixed hyperlipidemia (principal); I10 Essential (primary) hypertension; R73.01 Impaired fasting glucose

== ENCOUNTER → 2018-11-28 | Outpatient (REF) | payer OTHER ==
[2018-11-28 13:03] LABS: APPEARANCE, URINE HAZY (CLEAR); BILIRUBIN, URINE AUTO NEGATIVE (NEGATIVE); BLOOD, URINE BLOOD NEGATIVE (NEGATIVE); COLOR, URINE STRAW (YELLOW); GLUCOSE, URINE (UA) AUTO NEGATIVE (NEGATIVE); KETONE, URINE AUTO NEGATIVE (NEGATIVE); LEUKOCYTE ESTERASE, URINE AUTO NEGATIVE (NEGATIVE); NITRITE, URINE AUTO NEGATIVE (NEGATIVE); PROTEIN, URINE AUTO NEGATIVE (NEGATIVE); SPECIFIC GRAVITY URINE AUTO 1.003 (1.002-1.035); UROBILINOGEN, URINE AUTO 0.2 mg/dL (0.0-2.0); WBC, URINE AUTO 0 /HPF (0-3)
[2018-11-28 13:04] LABS: BACTERIA, URINE AUTO NEGATIVE (NEGATIVE); RBC, URINE AUTO 1 /HPF (0-3); SQUAMOUS EPITHELIAL CELL UR AU 6 /HPF (0-6)
== END ==
LOC: M SFHCPLAZ 12:24
PROVIDERS: ATTEND Family Medicine
DX: N39.0 Urinary tract infection, site not specified (principal)

== ENCOUNTER → 2018-12-26 | Outpatient (REF) | payer OTHER ==
[~2018-12-26] MED LIST changes: -METF750T PO; +METF750T36 PO
[2018-12-30 14:07] LABS: HPV HYBRID CAPTURE II Negative (Negative)
== END ==
LOC: M SFHCPLAZ 11:26
PROVIDERS: ATTEND Nurse Practitioner Family
DX: Z01.419 Encounter for gynecological examination (general) (routine) without abnormal findings (principal)

== ENCOUNTER 2019-04-22 12:40 | Emergency (ER) | payer OTHER ==
[~2019-04-22] VITALS: Ht 160 cm; Wt 90.9 kg
[2019-04-22] MEDS ORDERED: ASPI-1 PO (13:10)
[2019-04-22] MEDS ORDERED: EQL50TAB2 PO (13:10)
[2019-04-22] MEDS ORDERED: MELO15TA28 PO (13:10)
[2019-04-22] MEDS ORDERED: vitamin c PO (13:10)
[2019-04-22] MEDS ORDERED: NS 1,000 ML IV ONE (13:30)
--- NOTE | 2019-04-22 13:46 | REP ---
Clinical: Lower chest and abdominal pain . Comparison: 06/11/2018 . Technique: PA and lateral. Findings: The mediastinum and cardiac silhouette are normal. The lung peng are clear and without acute consolidation, effusion, or pneumothorax. The skeletal structures are intact and normal. Impression: 1. No acute cardiopulmonary process. Electronically Signed by Ad Adkins MD 04/22/2019 01:37 P
[2019-04-22] MEDS ORDERED: ISOVUE-370 76% 100ML VIAL (Q9967) As Ordered ONE (13:51)
[2019-04-22 13:53] LABS: BASO # 0.1 10^3/uL (0.0-0.2); BASO % 0.5 % (0.0-1.0); EOS # 0.1 10^3/uL (0.0-0.5); EOS % 1.2 % (0.0-3.0); HEMOGLOBIN 15.5 g/dl (12.0-15.5); LYMPH # 3.3 10^3/uL (1.5-5.0); LYMPH % 33.6 % (24.0-44.0); MEAN CORPUSCULAR HEMOGLOBIN 30.8 pg (27.0-33.0); MEAN CORPUSCULAR VOLUME 93.3 fl (80.0-96.0); MONO # 0.8 10^3/uL (0.0-0.8); MONO % 8.3 % (0.0-5.0); NEUTROPHILS # 5.5 10^3/uL (1.5-8.5); PLATELET COUNT, AUTOMATED 256 10^3/uL (150-450); RED BLOOD COUNT 5.04 10^6/uL (4.00-5.40); WHITE BLOOD COUNT 9.8 10^3/uL (4.0-10.0)
[2019-04-22 14:19] LABS: ALBUMIN 4.1 GM/DL (3.2-5.2); BILIRUBIN,DIRECT 0.1 MG/DL (0.0-0.2); BILIRUBIN,TOTAL 0.5 MG/DL (0.2-1.0); TOTAL PROTEIN 7.5 GM/DL (6.4-8.2)
--- NOTE | 2019-04-22 14:23 | REP ---
Clinical: Lower abdominal pain. Technique: Axial contrast enhanced images from the lung bases to the pubic symphysis with coronal and sagittal re-formations using 100 ml Isovue 370 intravenous contrast material. Comparison: 08/20/2012. Findings: Lung bases are clear. Visualized heart and pericardium normal. Liver, spleen, pancreas, bilateral adrenal glands and kidneys are essentially normal. Small bilateral renal hypodensities measuring up to 1.2 cm likely representing cysts. Cholelithiasis noted without acute cholecystitis. The enteric system is without obstruction or acute inflammatory process. Normal terminal ileum, cecum and appendix identified in the right lower quadrant. Pelvis demonstrates normal bladder and evidence of prior hysterectomy. No ascites. No free air. No adenopathy. Abdominal aorta without aneurysm or dissection. Musculoskeletal structures demonstrate age-related changes without focal abnormality. Impression: 1. No acute abdominopelvic pathology appreciated. 2. No ascites. No focal inflammatory stranding. No adenopathy. 3. Cholelithiasis without acute cholecystitis. Electronically Signed by Ad Adkins MD 04/22/2019 02:14 P
[2019-04-22] MEDS ORDERED: ONDA8TAB8 PO (14:58)
[2019-04-22] MEDS ORDERED: POTASSIUM CHLORIDE 10 MEQ SR TABLET PO ONE (15:00)
[2019-04-22 15:04] VITALS: BP 123/58
[2019-04-22 15:10] LABS: MAGNESIUM LEVEL 2.1 MG/DL (1.8-2.4)
== END 2019-04-22 15:11 | disposition home or self-care (01) ==
LOC: M ED 12:40
DX: R11.2 Nausea with vomiting, unspecified (principal); R19.7 Diarrhea, unspecified; R31.9 Hematuria, unspecified; E87.6 Hypokalemia; K80.20 Calculus of gallbladder without cholecystitis without obstruction; N28.9 Disorder of kidney and ureter, unspecified; E11.9 Type 2 diabetes mellitus without complications; F17.200 Nicotine dependence, unspecified, uncomplicated; F41.9 Anxiety disorder, unspecified; G47.33 Obstructive sleep apnea (adult) (pediatric); I10 Essential (primary) hypertension; K20.9 Esophagitis, unspecified; Z79.82 Long term (current) use of aspirin; Z79.84 Long term (current) use of oral hypoglycemic drugs; Z79.899 Other long term (current) drug therapy
CPT/HCPCS: 71046; 74177; 80047; 80076; 81001; 83690; 83735; 85025; 96360; 99284; Q9967

== ENCOUNTER → 2019-04-24 | Outpatient (CLI) | payer OTHER ==
[~2019-04-24] MED LIST changes: +ASPI-1 PO; +EQL50TAB2 PO; +MELO15TA28 PO; +ONDA8TAB8 PO; +vitamin c PO
[2019-04-24 09:34] LABS: BASO % 0.6 % (0.0-1.0); EOS # 0.2 10^3/uL (0.0-0.5); EOS % 2.3 % (0.0-3.0); HEMATOCRIT 42.5 % (36.0-47.0); LYMPH # 2.5 10^3/uL (1.5-5.0); LYMPH % 34.5 % (24.0-44.0); MEAN CORPUSCULAR HEMOGLOBIN 30.8 pg (27.0-33.0); MEAN CORPUSCULAR HGB CONC 32.9 g/dl (32.0-36.5); MEAN CORPUSCULAR VOLUME 93.6 fl (80.0-96.0); MONO # 0.6 10^3/uL (0.0-0.8); MONO % 8.7 % (0.0-5.0); NEUTROPHILS # 3.8 10^3/uL (1.5-8.5); NEUTROPHILS % 53.5 % (36.0-66.0); PLATELET COUNT, AUTOMATED 233 10^3/uL (150-450); RED BLOOD COUNT 4.54 10^6/uL (4.00-5.40); WHITE BLOOD COUNT 7.1 10^3/uL (4.0-10.0)
[2019-04-24 10:04] LABS: HEMOGLOBIN A1c 5.6 %
[2019-04-24 10:14] LABS: ALBUMIN 3.7 GM/DL (3.2-5.2); ALT/SGPT 17 U/L (12-78); BILIRUBIN,TOTAL 0.4 MG/DL (0.2-1.0); BLOOD UREA NITROGEN 15 MG/DL (7-18); CALCIUM LEVEL 9.2 MG/DL (8.8-10.2); CARBON DIOXIDE LEVEL 27 MEQ/L (21-32); CHLORIDE LEVEL 110 MEQ/L (98-107); CREATININE FOR GFR 0.67 MG/DL (0.55-1.30); FREE T4 1.08 NG/DL (0.76-1.46); GLOMERULAR FILTRATION RATE > 60.0 (>45); GLUCOSE, FASTING 84 MG/DL (70-100); SODIUM LEVEL 144 MEQ/L (136-145); TOTAL PROTEIN 6.7 GM/DL (6.4-8.2)
== END ==
LOC: M WUC 08:26
PROVIDERS: ATTEND Family Medicine
DX: R73.01 Impaired fasting glucose (principal)

== ENCOUNTER → 2019-04-24 | Outpatient (REF) | payer OTHER | LOC: M LAB REF 11:30 | PROVIDERS: ATTEND Physician Assistant | DX: R19.7 Diarrhea, unspecified (principal) ==

== ENCOUNTER → 2019-05-01 | Outpatient (CLI) | payer OTHER ==
--- NOTE | 2019-05-01 14:41 | REPPI ---
CERVICAL SPINE SERIES: Seven views of cervical spine are performed including flexion and extension lateral views. There is no fracture or dislocation. Mild anterior and posterior spurring is seen of the C5 vertebral body. There is moderate disc space narrowing with subchondral sclerosis at the C5-6 disc space. There is diffuse narrowing, sclerosis, and spurring at the posterior facet joints. Uncovertebral spurring appears to cause at least a mild degree of bilateral foraminal narrowing at C5-6. IMPRESSION: Moderate degenerative changes at C5-6 level with possibly a mild to moderate degree of bilateral foraminal narrowing at that level. Electronically Signed by Leif Vasquez MD 05/02/2019 03:22 P
== END ==
LOC: M PLAIMG 12:48
PROVIDERS: ATTEND Family Medicine
DX: M47.812 Spondylosis without myelopathy or radiculopathy, cervical region (principal)

== ENCOUNTER → 2019-05-23 | Outpatient (CLI) | payer OTHER ==
--- NOTE | 2019-05-23 13:36 | REPVR ---
PROCEDURE INFORMATION: Exam: MR Cervical Spine Without Contrast Exam date and time: 05/23/2019 12:47 PM Age: 63 years old Clinical indication: Neck pain; Additional info: Spondylosis TECHNIQUE: Imaging protocol: Multiplanar magnetic resonance images of the cervical spine without contrast. COMPARISON: CR SPINE CERVICAL COMPLETE 05/01/2019 1:02 PM FINDINGS: Vertebrae: Unremarkable. Spinal cord: Normal signal. No cord compression. C2-C3: There is mild ventral ridging which flattens the ventral thecal sac. C3-C4: There is disc desiccation. C4-C5: There is a moderate disc/osteophyte complex that flattens the ventral thecal sac. There is indentation of the ventral thecal sac. There is disc desiccation. C5-C6: There is disc space narrowing and desiccation. There are moderate degenerative end plate changes at this level. There is a moderate disc/osteophyte complex that flattens the ventral thecal sac. There is a small central disc protrusion. There is moderate bilateral uncovertebral joint arthropathy. There is mild bilateral neuroforaminal narrowing. There is mild spinal canal stenosis. C6-C7: There is a moderate disc/osteophyte complex that flattens the ventral thecal sac. There is a small central disc protrusion. C7-T1: No significant disc disease. No significant spinal stenosis. IMPRESSION: Multilevel degenerative changes with variable degrees of spinal canal and neuroforaminal narrowing. Electronically signed by: Shar Costello On 05/23/2019 13:38:17 PM
== END ==
LOC: M RAD 11:44
PROVIDERS: ATTEND Nurse Practitioner Family
DX: M47.812 Spondylosis without myelopathy or radiculopathy, cervical region (principal)

== ENCOUNTER → 2019-09-11 | Outpatient (CLI) | payer OTHER ==
[2019-09-11 09:56] LABS: BASO % 0.5 % (0.0-1.0); EOS # 0.2 10^3/uL (0.0-0.5); EOS % 3.2 % (0.0-3.0); HEMATOCRIT 46.7 % (36.0-47.0); HEMOGLOBIN 15.6 g/dl (12.0-15.5); LYMPH # 2.6 10^3/uL (1.5-5.0); LYMPH % 33.7 % (24.0-44.0); MEAN CORPUSCULAR HEMOGLOBIN 31.5 pg (27.0-33.0); MEAN CORPUSCULAR HGB CONC 33.4 g/dl (32.0-36.5); MEAN CORPUSCULAR VOLUME 94.2 fl (80.0-96.0); MONO # 0.7 10^3/uL (0.0-0.8); MONO % 8.9 % (0.0-5.0); NEUTROPHILS % 53.3 % (36.0-66.0); PLATELET COUNT, AUTOMATED 235 10^3/uL (150-450); RED BLOOD COUNT 4.96 10^6/uL (4.00-5.40); WHITE BLOOD COUNT 7.6 10^3/uL (4.0-10.0)
[2019-09-11 10:15] LABS: HEMOGLOBIN A1c 5.7 %
[2019-09-11 10:46] LABS: APPEARANCE, URINE CLOUDY (CLEAR); BACTERIA, URINE AUTO 1+ (NEGATIVE); BILIRUBIN, URINE AUTO NEGATIVE (NEGATIVE); BLOOD, URINE BLOOD 2+ (NEGATIVE); CALCIUM OXALATE CRYSTALS LARGE; COLOR, URINE YELLOW (YELLOW); GLUCOSE, URINE (UA) AUTO NEGATIVE (NEGATIVE); KETONE, URINE AUTO NEGATIVE (NEGATIVE); LEUKOCYTE ESTERASE, URINE AUTO NEGATIVE (NEGATIVE); MUCUS, URINE SMALL (NEGATIVE); NITRITE, URINE AUTO NEGATIVE (NEGATIVE); PROTEIN, URINE AUTO NEGATIVE (NEGATIVE); RBC, URINE AUTO 5 /HPF (0-3); SPECIFIC GRAVITY URINE AUTO 1.019 (1.002-1.035); SQUAMOUS EPITHELIAL CELL UR AU 8 /HPF (0-6); UROBILINOGEN, URINE AUTO 0.2 mg/dL (0.0-2.0); WBC, URINE AUTO 2 /HPF (0-3)
[2019-09-11 10:54] LABS: MALB URINE SIEMENS 15.1 MG/L
[2019-09-11 10:56] LABS: ALBUMIN 3.5 GM/DL (3.2-5.2); ALT/SGPT 17 U/L (12-78); BILIRUBIN,TOTAL 0.3 MG/DL (0.2-1.0); BLOOD UREA NITROGEN 12 MG/DL (7-18); CARBON DIOXIDE LEVEL 30 MEQ/L (21-32); CHLORIDE LEVEL 107 MEQ/L (98-107); CREATININE FOR GFR 0.64 MG/DL (0.55-1.30); GLOMERULAR FILTRATION RATE > 60.0 (>45); GLUCOSE, FASTING 94 MG/DL (70-100); POTASSIUM SERUM 3.9 MEQ/L (3.5-5.1); SODIUM LEVEL 144 MEQ/L (136-145); TOTAL PROTEIN 6.5 GM/DL (6.4-8.2); VITAMIN B12 LEVEL 808 PG/ML (247-911)
== END ==
LOC: M WUC 08:05
PROVIDERS: ATTEND Family Medicine
DX: R73.01 Impaired fasting glucose (principal); I10 Essential (primary) hypertension

== ENCOUNTER → 2019-09-16 | Outpatient (CLI) | payer OTHER ==
--- NOTE | 2019-09-16 08:42 | REPMRS ---
Patient History The patient states she has not had a clinical breast exam in over a year. No known family history of cancer. Benign US guided breast biopsy of the right breast, September 04, 2018. No Hormone Replacement Therapy Digital Woman Screen Mammo: September 16, 2019 - Exam #: [id number] Bilateral CC and MLO view(s) were taken. Technologist: Tg Swartz, Technologist Prior study comparison: September 04, 2018, right breast digital mammo diagnostic unilateral, performed at [facility]. August 22, 2018, right breast digital mammo diagnostic unilateral, performed at [facility]. August 08, 2018, bilateral digital woman screen mammo performed at [facility]. FINDINGS: There are scattered fibroglandular densities. The Volpara volumetric breast density category is:B. A needle biopsy marker clip is again noted in the right breast anteriorly and inferomedially. There has been no change in the appearance of the mammogram from the prior studies. There is a mild amount of scattered fibroglandular density which is fairly symmetric. There is no interval development of dominant mass, architectural distortion, or grouped microcalcification suggestive of malignancy. 3-D tomosynthesis shows no additional findings. Assessment: BI-RADS/ACR category 2 mammogram. Benign Findings. Recommendation Routine screening mammogram of both breasts in 1 year (for women over age 40). This patient's Lifetime Breast Cancer Risk is estimated at 5.2 %. This mammogram was interpreted with the aid of an FDA-approved computer-aided dectection system. Electronically Signed By: Sorin Seals MD 09/16/19 0863
== END ==
LOC: M WHC 08:13
PROVIDERS: ATTEND Family Medicine
DX: Z12.31 Encounter for screening mammogram for malignant neoplasm of breast (principal)

== ENCOUNTER → 2019-10-20 | Outpatient (RCR) | payer OTHER | LOC: M OT 10-06 08:56 | PROVIDERS: ATTEND Orthopaedic Surgery | DX: Z51.89 Encounter for other specified aftercare (principal); Z47.89 Encounter for other orthopedic aftercare ==

== ENCOUNTER → 2020-02-29 | Outpatient (CLI) | payer OTHER ==
[2020-02-29 10:31] LABS: BASO % 0.5 % (0.0-1.0); EOS # 0.2 10^3/uL (0.0-0.5); HEMATOCRIT 45.6 % (36.0-47.0); HEMOGLOBIN 14.5 g/dl (12.0-15.5); LYMPH # 2.8 10^3/uL (1.5-5.0); LYMPH % 34.2 % (24.0-44.0); MEAN CORPUSCULAR HGB CONC 31.8 g/dl (32.0-36.5); MEAN CORPUSCULAR VOLUME 94.4 fl (80.0-96.0); MONO # 0.7 10^3/uL (0.0-0.8); MONO % 8.4 % (0.0-5.0); NEUTROPHILS # 4.4 10^3/uL (1.5-8.5); NEUTROPHILS % 54.4 % (36.0-66.0); PLATELET COUNT, AUTOMATED 239 10^3/uL (150-450); RED BLOOD COUNT 4.83 10^6/uL (4.00-5.40); WHITE BLOOD COUNT 8.1 10^3/uL (4.0-10.0)
[2020-02-29 11:12] LABS: HEMOGLOBIN A1c 5.7 %
[2020-02-29 11:19] LABS: ALBUMIN 3.5 GM/DL (3.2-5.2); ALT/SGPT 18 U/L (12-78); BILIRUBIN,TOTAL 0.4 MG/DL (0.2-1.0); BLOOD UREA NITROGEN 14 MG/DL (7-18); CALCIUM LEVEL 9.1 MG/DL (8.8-10.2); CARBON DIOXIDE LEVEL 30 MEQ/L (21-32); CHLORIDE LEVEL 106 MEQ/L (98-107); CREATININE FOR GFR 0.68 MG/DL (0.55-1.30); FREE T4 1.11 NG/DL (0.76-1.46); GLOMERULAR FILTRATION RATE > 60.0 (>45); GLUCOSE, FASTING 77 MG/DL (70-100); POTASSIUM SERUM 3.9 MEQ/L (3.5-5.1); SODIUM LEVEL 142 MEQ/L (136-145); TOTAL PROTEIN 6.2 GM/DL (6.4-8.2)
[2020-03-01 15:06] LABS: ALBUMIN 3.66 GM/DL (3.29-5.55); ALBUMIN % 59.1 % (55.8-66.1); ALPHA-1-GLOBULIN % 4.6 % (2.9-4.9); ALPHA-1-GLOBULINS 0.29 GM/DL (0.17-0.41); ALPHA-2-GLOBULINS 0.74 GM/DL (0.42-0.99); BETA-1-GLOBULINS 0.44 GM/DL (0.28-0.60); BETA-1-GLOBULINS % 7.1 % (4.7-7.2); BETA-2-GLOBULINS 0.37 GM/DL (0.19-0.55); GAMMA GLOBULIN % 11.2 % (11.1-18.8); GAMMA GLOBULINS 0.69 GM/DL (0.65-1.58)
== END ==
LOC: M WUC 08:15
PROVIDERS: ATTEND Family Medicine
DX: K21.00 Gastro-esophageal reflux disease with esophagitis, without bleeding (principal); R73.01 Impaired fasting glucose

== ENCOUNTER 2020-03-23 14:25 | Emergency (ER) | payer OTHER ==
[~2020-03-23] VITALS: Ht 160 cm; Wt 101.2 kg
[2020-03-23] MEDS ORDERED: PANT40TA29 PO (14:46)
[2020-03-23] MEDS ORDERED: SUCR1TA PO (14:48)
[2020-03-23 16:30] VITALS: BP 124/60
== END 2020-03-23 17:16 | disposition left against medical advice (07) ==
LOC: M ED 14:25
DX: Z53.21 Procedure and treatment not carried out due to patient leaving prior to being seen by health care provider (principal)

== ENCOUNTER → 2020-03-25 | Outpatient (CLI) | payer OTHER ==
[~2020-03-25] MED LIST changes: +PANT40TA29 PO; +SUCR1TA PO
--- NOTE | 2020-03-25 12:57 | REPPI ---
INDICATION: R11.0 NAUSEA. COMPARISON: None. FINDINGS: KUB shows the intestinal gas pattern to be nonspecific. The organ silhouettes insofar as delineated are unremarkable. There is no evidence of free intraperitoneal air. Chronic SI joint changes are seen bilaterally left greater than right. There are bilateral pelvic phleboliths. Chronic changes seen involving the imaged spine. Chronic changes seen involving the symphysis pubis. IMPRESSION: Nonspecific. <Electronically signed by Himanshu Conner > 03/25/20 [id number]
== END ==
LOC: M PLAIMG 11:31
PROVIDERS: ATTEND Nurse Practitioner Family
DX: R11.0 Nausea (principal); I87.8 Other specified disorders of veins

== ENCOUNTER → 2020-05-20 | Outpatient (CLI) | payer OTHER ==
--- NOTE | 2020-05-20 11:13 | REPVR ---
PROCEDURE INFORMATION: Exam: MR Lumbar Spine Without Contrast. Exam date and time: 05/20/2020 10:34 AM Age: 64 years old Clinical indication: Other: Lumbar radiculopathy TECHNIQUE: Imaging protocol: Multiplanar magnetic resonance images of the lumbar spine without intravenous contrast. COMPARISON: No relevant prior studies available. FINDINGS: Vertebrae: No acute compression fracture is seen. There is minor retrolisthesis of L1 on L2 and L2 on L3. There is 5 mm of anterolisthesis of L4 on L5 due to severe facet arthropathy. Spinal cord: The conus medullaris terminates at the L1-L2 level. There is cauda equina compression at the L4-L5 level as discussed below. L1-L2: There is moderate diffuse circumferential disc bulging with a superimposed right subarticular disc protrusion. Right subarticular disc material is migrating caudally roughly 5 mm from the level of the disc. This is causing mild spinal canal stenosis, moderate narrowing of the right subarticular recess, and mild right neural foraminal narrowing. L2-L3: There is marked diffuse circumferential disc bulging, moderate facet arthropathy, and thickening of the ligamentum flavum. This is causing moderate spinal canal stenosis, severe narrowing of the left subarticular recess, moderate left neural foraminal narrowing, and mild right neural foraminal narrowing. L3-L4: There is minimal diffuse circumferential disc bulging, severe left facet arthropathy, and mild right facet arthropathy. There is no significant spinal canal or neural foraminal stenosis. L4-L5: There is marked diffuse circumferential disc bulging, severe facet arthropathy, and thickening/buckling of the ligamentum flavum. This is causing severe spinal canal stenosis, severe narrowing of the subarticular recesses, moderate left neural foraminal narrowing, and mild right neural foraminal narrowing. L5-S1: There is moderate diffuse circumferential disc bulging and severe facet arthropathy. There is no significant spinal canal stenosis. There is mild narrowing of the subarticular recesses and mild bilateral neural foraminal narrowing. Soft tissues: Mild subcutaneous edema is present in the lower back. IMPRESSION: Marked degenerative changes of the lumbar spine, most pronounced at L4-L5. Severe spinal canal stenosis is present at L4-L5. Electronically signed by: Davis Chiu On 05/20/2020 11:13:40 AM
== END ==
LOC: M RAD 08:48
PROVIDERS: ATTEND Nurse Practitioner Family
DX: M51.16 Intervertebral disc disorders with radiculopathy, lumbar region (principal); M48.061 Spinal stenosis, lumbar region without neurogenic claudication

== ENCOUNTER → 2020-06-02 | Outpatient (CLI) | payer OTHER ==
--- NOTE | 2020-06-03 01:44 | REPPI ---
INDICATION: M51.16 RADICULOPATHY DUE TO LUMBAR INTERVERTEBRAL DISC DISOR COMPARISON: None. TECHNIQUE: AP, lateral, flexion/extension, bilateral oblique, and coned-down views. FINDINGS: Lateral view demonstrates 8 mm of anterolisthesis at the L4-5 level. Early advanced multilevel degenerative changes throughout the visualized lumbosacral spine also include endplate sclerosis, marginal spurring/osteophyte formation, disc space narrowing, and facet arthropathy. No acute fracture/compression injury. IMPRESSION: Advanced multilevel degenerative spondylosis including anterolisthesis at L4-5. <Electronically signed by Ad Adkins > 06/03/20 0140
== END ==
LOC: M PLAIMG 09:28
PROVIDERS: ATTEND Neurological Surgery
DX: M51.36 Other intervertebral disc degeneration, lumbar region (principal); M51.16 Intervertebral disc disorders with radiculopathy, lumbar region

== ENCOUNTER → 2020-08-11 | Outpatient (REF) | payer OTHER ==
[2020-08-11 13:45] LABS: BASO # 0.1 10^3/uL (0.0-0.2); BASO % 0.5 % (0.0-1.0); EOS # 0.1 10^3/uL (0.0-0.5); EOS % 1.1 % (0.0-3.0); HEMATOCRIT 42.9 % (36.0-47.0); HEMOGLOBIN 13.5 g/dl (12.0-15.5); LYMPH # 2.7 10^3/uL (1.5-5.0); LYMPH % 27.6 % (24.0-44.0); MEAN CORPUSCULAR HEMOGLOBIN 29.7 pg (27.0-33.0); MEAN CORPUSCULAR HGB CONC 31.5 g/dl (32.0-36.5); MEAN CORPUSCULAR VOLUME 94.3 fl (80.0-96.0); MONO # 0.7 10^3/uL (0.0-0.8); MONO % 7.2 % (2.0-8.0); NEUTROPHILS # 6.2 10^3/uL (1.5-8.5); NEUTROPHILS % 63.2 % (36.0-66.0); PLATELET COUNT, AUTOMATED 269 10^3/uL (150-450); RED BLOOD COUNT 4.55 10^6/uL (4.00-5.40); WHITE BLOOD COUNT 9.8 10^3/uL (4.0-10.0)
[2020-08-11 14:32] LABS: ALBUMIN 3.8 GM/DL (3.2-5.2); ALT/SGPT 19 U/L (12-78); BILIRUBIN,TOTAL 0.3 MG/DL (0.2-1.0); BLOOD UREA NITROGEN 11 MG/DL (7-18); CALCIUM LEVEL 9.9 MG/DL (8.8-10.2); CARBON DIOXIDE LEVEL 28 MEQ/L (21-32); CHLORIDE LEVEL 107 MEQ/L (98-107); CHOLESTEROL LEVEL 190 MG/DL (<200); CHOLESTEROL RISK RATIO 3.725 (<5); CREATININE FOR GFR 0.56 MG/DL (0.55-1.30); FREE T4 1.06 NG/DL (0.76-1.46); GLOMERULAR FILTRATION RATE > 60.0 (>45); GLUCOSE, FASTING 90 MG/DL (70-100); HDL CHOLESTEROL 51 MG/DL (>40); LDL CHOLESTEROL 100 MG/DL (<100); LIPASE 115 U/L (73-393); NON-HDL-C 139 MG/DL; NT-PRO BNP 84 PG/ML (<125); POTASSIUM SERUM 3.9 MEQ/L (3.5-5.1); SODIUM LEVEL 141 MEQ/L (136-145); TOTAL PROTEIN 6.9 GM/DL (6.4-8.2); TRIGLYCERIDES LEVEL 197 MG/DL (<150)
== END ==
LOC: M SFHCPLAZ 10:11
PROVIDERS: ATTEND Family Medicine
DX: R73.01 Impaired fasting glucose (principal); D75.89 Other specified diseases of blood and blood-forming organs; I10 Essential (primary) hypertension; E78.2 Mixed hyperlipidemia; K21.9 Gastro-esophageal reflux disease without esophagitis

== ENCOUNTER → 2020-09-23 | Outpatient (CLI) | payer OTHER ==
--- NOTE | 2020-09-23 10:01 | REPMRS ---
Patient History The patient states she has not had a clinical breast exam in over a year. No known family history of cancer. Benign US guided breast biopsy of the right breast, September 04, 2018. No Hormone Replacement Therapy Patient states no breast complaints today. Patient has signed MRS History Sheet. Digital Woman Screen Mammo: September 23, 2020 - Exam #: [id number] Bilateral CC and MLO view(s) were taken. Technologist: Sunni Booker Technologist Prior study comparison: September 16, 2019, bilateral digital woman screen mammo performed at [facility]. September 04, 2018, right breast digital mammo diagnostic unilateral, performed at [facility]. FINDINGS: There are scattered fibroglandular densities. Screening. Digital screening (2D) mammography was performed bilaterally in the CC and MLO projections. Additionally, breast tomosynthesis (3D mammography) was performed bilaterally in the CC and MLO projections. Todays exam was compared to the prior exams. By history, the patient has no complaints of a palpable breast abnormality or other significant breast complaints. The breasts are unchanged in size and shape. There are no carl-soft tissue densities or spiculated masses. There is no internal architectural distortion.Once again, stable benign appearing calcifications are seen. There are no suspicious carl-calcific clusters. Skin thickening or nipple retraction is not present. IMPRESSION: BI-RADS Category 2- Benign Findings. There is no evidence of malignant alteration of the breasts. Followup examination recommended in one year. The Volpara volumetric breast density category is B, there are scattered areas of fibroglandular density. This mammogram was read with the assistance of [employer],an FDA approved computer aided detection system for mammography. The lifetime Tyrer-Cuzick score is 5 % Negative x-ray reports should not delay surgical consultation if a dominant or clinically suspicious mass is present. Not all breast cancers can be identified by mammography. Therefore, we recommend that you continue to perform regular breast self-examination and physical examination and then promptly contact your physician of any concerns or changes. Adenosis and dense breasts may obscure an underlying neoplasm. Assessment: BI-RADS/ACR category 2 mammogram. Benign Findings. Recommendation Routine screening mammogram of both breasts in 1 year. Electronically Signed By: Himanshu Conner DO 09/23/20 1000
== END ==
LOC: M WHC 09:10
PROVIDERS: ATTEND Family Medicine
DX: Z12.31 Encounter for screening mammogram for malignant neoplasm of breast (principal)

== ENCOUNTER → 2020-10-08 | Outpatient (CLI) | payer OTHER ==
[~2020-10-08] MED LIST changes: +D31000TA2 PO; +FISH1000 PO; +VITA-243 PO
== END ==
LOC: M LABSMTC 10:22
PROVIDERS: ATTEND Anesthesiology
DX: Z01.812 Encounter for preprocedural laboratory examination (principal); Z20.822 Contact with and (suspected) exposure to COVID-19

== ENCOUNTER 2020-10-13 10:17 | Day surgery (SDC) | payer OTHER ==
[~2020-10-13] VITALS: Ht 167.6 cm; Wt 96.2 kg
[~2020-10-13 10:17] MED LIST changes: +NS 1,000 ML IV ONE
[2020-10-13] MEDS ORDERED: propofoL 200 MG/20 ML VIAL As Ordered ONE (12:06)
[2020-10-13] MEDS ORDERED: LIDOCAINE 2% 100MG/5ML SDV (FOR ANES.) As Ordered ONE (12:06)
[2020-10-13] MEDS ORDERED: fentaNYL 100 MCG/2 ML INJECTION (J3010) As Ordered ONE (12:06)
--- NOTE | 2020-10-13 12:37 | ROOR ---
Patient Name: Ene Baker Procedure Date: 10/13/2020 12:19 PM Date of : 1955 Age: 65 Room: [facility] Gender: Female Note Status: Finalized Procedure: Upper GI endoscopy Indications: Heartburn Providers: Jose De Jesus Gauthier MD Referring MD: Francisco Mckeon MD Requesting Provider: Medicines: Monitored Anesthesia Care Complications: No immediate complications. Procedure: Pre-Anesthesia Assessment: - The heart rate, respiratory rate, oxygen saturations, blood pressure, adequacy of pulmonary ventilation, and response to care were monitored throughout the procedure. The Endoscope was introduced through the mouth, and advanced to the second part of duodenum. The upper GI endoscopy was accomplished without difficulty. The patient tolerated the procedure well. Findings: There was a small lipoma in the first portion of the duodenum. The esophagus was normal. The stomach was normal. The examined duodenum was normal. Impression: - Known small duodenal lipoma. - Normal esophagus. - Normal stomach. - Normal examined duodenum. - No specimens collected. Recommendation: - Observe patient's clinical course. - Follow an antireflux regimen. Procedure Code(s): --- Professional --- 91893, Esophagogastroduodenoscopy, flexible, transoral; diagnostic, including collection of specimen(s) by brushing or washing, when performed (separate procedure) Diagnosis Code(s): --- Professional --- R12, Heartburn D17.5, Benign lipomatous neoplasm of intra-abdominal organs CPT copyright 2019 [employer]. All rights reserved. The codes documented in this report are preliminary and upon cardiac cath lab technologist review may be revised to meet current compliance requirements. Jose De Jesus Gauthier MD Jose De Jesus Gauthier MD 10/13/2020 12:37:18 PM Electronically signed by Jose De Jesus Gauthier MD Number of Addenda: 0 Note Initiated On: 10/13/2020 12:19 PM Estimated Blood Loss: Estimated blood loss: none.
--- NOTE | 2020-10-13 12:53 | ROOR ---
Patient Name: Ene Baker Procedure Date: 10/13/2020 12:20 PM Date of : 1955 Age: 65 Room: [facility] Gender: Female Note Status: Finalized Procedure: Colonoscopy Indications: Hematochezia Providers: Jose De Jesus Gauthier MD Referring MD: Francisco Mckeon MD Requesting Provider: Medicines: Monitored Anesthesia Care Complications: No immediate complications. Procedure: Pre-Anesthesia Assessment: - The heart rate, respiratory rate, oxygen saturations, blood pressure, adequacy of pulmonary ventilation, and response to care were monitored throughout the procedure. The Colonoscope was introduced through the anus and advanced to the terminal ileum, with identification of the appendiceal orifice and IC valve. The colonoscopy was performed without difficulty. The patient tolerated the procedure well. The quality of the bowel preparation was good. Findings: The perianal and digital rectal examinations were normal. A 5 mm polyp was found in the distal sigmoid colon. The polyp was sessile. The polyp was removed with a cold snare. Resection and retrieval were complete. Internal hemorrhoids were found during retroflexion. The hemorrhoids were medium-sized. The exam was otherwise without abnormality on direct and retroflexion views. Impression: - One 5 mm polyp in the distal sigmoid colon, removed with a cold snare. Resected and retrieved. - Internal hemorrhoids. - The colon and terminal ileum examinations are otherwise normal on direct and retroflexion views. Recommendation: - Repeat colonoscopy in 5 years for surveillance. - Continue present medications. Procedure Code(s): --- Professional --- 40610, Colonoscopy, flexible; with removal of tumor(s), polyp(s), or other lesion(s) by snare technique Diagnosis Code(s): --- Professional --- K92.1, Melena (includes Hematochezia) K64.8, Other hemorrhoids K63.5, Polyp of colon CPT copyright 2019 [employer]. All rights reserved. The codes documented in this report are preliminary and upon label coder review may be revised to meet current compliance requirements. Jose De Jesus Gauthier MD Jose De Jesus Gauthier MD 10/13/2020 12:52:50 PM Electronically signed by Jose De Jesus Gauthier MD Number of Addenda: 0 Note Initiated On: 10/13/2020 12:20 PM Estimated Blood Loss: Estimated blood loss: none.
[2020-10-13 13:25] VITALS: BP 133/63
== END 2020-10-13 13:27 | disposition home or self-care (01) ==
LOC: M OPP 10:17
PROVIDERS: ATTEND Internal Medicine Gastroenterology
DX: K63.5 Polyp of colon (principal); K64.8 Other hemorrhoids; K92.1 Melena; D17.5 Benign lipomatous neoplasm of intra-abdominal organs; R12 Heartburn; G47.30 Sleep apnea, unspecified; K21.9 Gastro-esophageal reflux disease without esophagitis; Z87.891 Personal history of nicotine dependence; Z79.84 Long term (current) use of oral hypoglycemic drugs; Z79.899 Other long term (current) drug therapy
CPT/HCPCS: 43235; 45385; 88305; J3010

== ENCOUNTER → 2020-11-10 | Outpatient (CLI) | payer OTHER ==
[~2020-11-10] MED LIST changes: +ISOVUE-300 61% 50ML VIAL As Ordered ONE; +LIDOCAINE 1% MDV 20ML VIAL As Ordered ONE; -NS 1,000 ML IV ONE; +TRIAMCINOLONE ACETONIDE SUSP 40 MG/ML VIAL (J3301) As Ordered ONE
--- NOTE | 2020-11-10 16:53 | REP ---
INDICATION: PAIN IN RIGHT ANKLE AND JOINTS RT FOOT. COMPARISON: None. TECHNIQUE: The procedure was performed under the direct supervision of Dr. Vasquez. The images were reviewed with Dr. Vasquez. The benefits and risks including but not limited to pain infection bleeding and anaphylaxis were explained to the patient and informed consent was obtained. The right subtalar joint space was localized using fluoroscopic guidance. The skin was prepped and draped in a sterile fashion. 1% lidocaine was used as a local anesthetic. Using fluoroscopic guidance, and last image hold technology, a 25 gauge needle was inserted and advanced into the joint. 1 cc of Isovue-300 was injected to verify placement. 3 mL of a solution containing 2 mL of 1% lidocaine and 1 mL of Kenalog 40 mg was injected. The needle was then removed. Less than 6 seconds of fluoroscopy time was utilized for this procedure. The patient tolerated the procedure well and there were no immediate complications. FINDINGS: None IMPRESSION: Fluoro guidance for right subtalar joint injection. <Electronically signed by Jamie Monk > 11/10/20 [id number] <Electronically signed by Leif Vasquez > 11/10/20 [id number]
== END ==
LOC: M RADPRO 12:50
PROVIDERS: ATTEND Orthopaedic Surgery
DX: M25.571 Pain in right ankle and joints of right foot (principal)

== ENCOUNTER → 2021-02-15 | Outpatient (CLI) | payer OTHER ==
[~2021-02-15] MED LIST changes: -ISOVUE-300 61% 50ML VIAL As Ordered ONE; -LIDOCAINE 1% MDV 20ML VIAL As Ordered ONE; -TRIAMCINOLONE ACETONIDE SUSP 40 MG/ML VIAL (J3301) As Ordered ONE
[2021-02-15 09:57] LABS: BASO % 0.6 % (0.0-1.0); EOS # 0.3 10^3/uL (0.0-0.5); EOS % 4.7 % (0.0-3.0); HEMATOCRIT 44.2 % (36.0-47.0); HEMOGLOBIN 14.7 g/dl (12.0-15.5); LYMPH # 2.2 10^3/uL (1.5-5.0); LYMPH % 32.6 % (24.0-44.0); MEAN CORPUSCULAR HEMOGLOBIN 30.7 pg (27.0-33.0); MEAN CORPUSCULAR HGB CONC 33.3 g/dl (32.0-36.5); MEAN CORPUSCULAR VOLUME 92.3 fl (80.0-96.0); MONO # 0.7 10^3/uL (0.0-0.8); MONO % 9.8 % (2.0-8.0); NEUTROPHILS # 3.5 10^3/uL (1.5-8.5); PLATELET COUNT, AUTOMATED 221 10^3/uL (150-450); RED BLOOD COUNT 4.79 10^6/uL (4.00-5.40); WHITE BLOOD COUNT 6.7 10^3/uL (4.0-10.0)
[2021-02-15 10:31] LABS: ALBUMIN 3.4 GM/DL (3.2-5.2); ALT/SGPT 20 U/L (12-78); BILIRUBIN,TOTAL 0.5 MG/DL (0.2-1.0); BLOOD UREA NITROGEN 14 MG/DL (7-18); CALCIUM LEVEL 9.1 MG/DL (8.8-10.2); CARBON DIOXIDE LEVEL 29 MEQ/L (21-32); CHLORIDE LEVEL 108 MEQ/L (98-107); CPK CREATINE PHOSPHOKINASE 90 U/L (26-192); CREATININE FOR GFR 0.62 MG/DL (0.55-1.30); FREE T4 1.06 NG/DL (0.76-1.46); GLOMERULAR FILTRATION RATE > 60.0 (>45); GLUCOSE, FASTING 104 MG/DL (70-100); POTASSIUM SERUM 3.5 MEQ/L (3.5-5.1); SODIUM LEVEL 143 MEQ/L (136-145); THYROID STIMULATING HORMONE 0.987 uIU/ML (0.358-3.740); TOTAL PROTEIN 6.4 GM/DL (6.4-8.2)
[2021-02-15 10:46] LABS: HEMOGLOBIN A1c 5.4 %
== END ==
LOC: M WUC 08:14
PROVIDERS: ATTEND Family Medicine
DX: I10 Essential (primary) hypertension (principal); R73.01 Impaired fasting glucose; E78.2 Mixed hyperlipidemia

== ENCOUNTER → 2021-03-02 | Outpatient (CLI) | payer OTHER ==
--- NOTE | 2021-03-02 15:36 | REP ---
INDICATION: SPONDYLOSIS W/O MYELOPATHY OR RADICULOPATHY, THORACIC REGION. COMPARISON: 02/01/2017 TECHNIQUE: AP and lateral views FINDINGS: There is no fracture, dislocation, or subluxation. The intervertebral disc spaces are unchanged. Anterior osteophytes are present in the mid and lower thoracic level status quo. Vertebral body height and alignment is unchanged. There is no significant change in appearance of the pedicles. IMPRESSION: No significant change as described above. <Electronically signed by Himanshu Conner > 03/02/21 [id number]
== END ==
LOC: M PLALAB 15:05
PROVIDERS: ATTEND Family Medicine
DX: M47.814 Spondylosis without myelopathy or radiculopathy, thoracic region (principal)

== ENCOUNTER → 2021-08-07 | Outpatient (CLI) | payer OTHER ==
[~2021-08-07] MED LIST changes: -D31000TA2 PO; +LOSA100T45 PO; -LOSA100T50 PO; +LOSA50TA28 PO; -LOSA50TA88 PO; +OMEP-173 PO; -OMEP-218 PO; +VITA100093 PO
== END ==
LOC: M PLAIMG 15:05
PROVIDERS: ATTEND Family Medicine
DX: M47.816 Spondylosis without myelopathy or radiculopathy, lumbar region (principal)

== ENCOUNTER → 2021-09-25 | Outpatient (CLI) | payer OTHER ==
[~2021-09-25] MED LIST changes: +CHLO125TA PO; +FLUO20CA22 PO; +META0.52 PO; +RAMI1CAP24 PO; +TRAM50TA2 PO
== END ==
LOC: M LABSMTC 09:24
PROVIDERS: ATTEND Anesthesiology
DX: Z01.818 Encounter for other preprocedural examination (principal); Z11.52 Encounter for screening for COVID-19

== ENCOUNTER 2021-09-27 05:58 | Day surgery (SDC) | payer OTHER ==
[~2021-09-27] VITALS: Ht 160 cm; Wt 95.4 kg
[2021-09-27] MEDS ORDERED: LR 1,000 ML IV SCH ×2 (06:25→09:20)
[2021-09-27] MEDS ORDERED: BUPIVACAINE HCL 0.25% 30ML VIAL As Ordered ONE (07:13)
[2021-09-27] MEDS ORDERED: BACITRACIN OINTMENT 30GM TUBE As Ordered ONE (07:13)
[2021-09-27] MEDS ORDERED: MIDAZOLAM INJ 2MG/2ML VIAL (J2250 PER 1MG) As Ordered ONE (07:18)
[2021-09-27] MEDS ORDERED: dexameTHASONE 4 MG/ML 1ML VIAL (J1100 PER 1MG) As Ordered ONE (07:18)
[2021-09-27] MEDS ORDERED: LIDOCAINE 2% 100MG/5ML SDV (FOR ANES.) As Ordered ONE (07:18)
[2021-09-27] MEDS ORDERED: ONDANSETRON 4MG/2ML VIAL As Ordered ONE (07:18)
[2021-09-27] MEDS ORDERED: propofoL 200 MG/20 ML VIAL As Ordered ONE (07:18)
[2021-09-27] MEDS ORDERED: fentaNYL 100 MCG/2 ML INJECTION As Ordered ONE (07:20)
[2021-09-27] MEDS ORDERED: ceFAZolin 2 GM/D5W 50 ML IV BAG (J0690 PER 500MG) As Ordered ONE (07:44)
[2021-09-27] MEDS ORDERED: ACETAMINOPHEN 1000MG 100ML IV BTL (OFIRMEV) (J0131 PER 10MG) As Ordered ONE (08:00)
[2021-09-27] MEDS ORDERED: KETOROLAC 60MG 2ML VIAL As Ordered ONE (08:30)
[2021-09-27] MEDS ORDERED: PERC5TAB12 PO ×2 (09:11→13:16)
[2021-09-27] MEDS ORDERED: fentaNYL 100 MCG/2 ML INJECTION IV PRN (09:20)
[2021-09-27] MEDS ORDERED: ONDANSETRON 4MG/2ML VIAL IV PRN (09:20)
[2021-09-27] MEDS: oxyCODONE 5MG TAB PO PRN ×2 (09:24→09:57)
[2021-09-27 10:20] VITALS: BP 141/87
== END 2021-09-27 10:42 | disposition home or self-care (01) ==
LOC: M SDC 05:58
PROVIDERS: ATTEND Orthopaedic Surgery Hand Surgery
DX: G56.02 Carpal tunnel syndrome, left upper limb (principal); M65.342 Trigger finger, left ring finger; M67.442 Ganglion, left hand
CPT/HCPCS: 26055; 64721; C1762; J0131; J0690; J1100; J1885; J2250; J2405; J3010

== ENCOUNTER → 2021-10-04 | Outpatient (CLI) | payer OTHER ==
[~2021-10-04] MED LIST changes: +PERC5TAB12 PO
== END ==
LOC: M WHC 10:37
PROVIDERS: ATTEND Family Medicine
DX: Z12.31 Encounter for screening mammogram for malignant neoplasm of breast (principal)

== ENCOUNTER → 2022-01-15 | Outpatient (CLI) | payer OTHER ==
[2022-01-15 10:19] LABS: BASO % 0.4 % (0.0-1.0); EOS # 0.3 10^3/uL (0.0-0.5); EOS % 3.2 % (0.0-3.0); HEMATOCRIT 46.4 % (36.0-47.0); HEMOGLOBIN 15.7 g/dl (12.0-15.5); LYMPH # 3.2 10^3/uL (1.5-5.0); LYMPH % 34.8 % (24.0-44.0); MEAN CORPUSCULAR HEMOGLOBIN 31.7 pg (27.0-33.0); MEAN CORPUSCULAR HGB CONC 33.8 g/dl (32.0-36.5); MEAN CORPUSCULAR VOLUME 93.5 fl (80.0-96.0); MONO # 0.8 10^3/uL (0.0-0.8); MONO % 8.6 % (2.0-8.0); NEUTROPHILS # 4.8 10^3/uL (1.5-8.5); NEUTROPHILS % 52.5 % (36.0-66.0); PLATELET COUNT, AUTOMATED 234 10^3/uL (150-450); RED BLOOD COUNT 4.96 10^6/uL (4.00-5.40); WHITE BLOOD COUNT 9.1 10^3/uL (4.0-10.0)
[2022-01-15 10:37] LABS: HEMOGLOBIN A1c 5.6 %
[2022-01-15 11:22] LABS: BLOOD UREA NITROGEN 13 MG/DL (7-18); CARBON DIOXIDE LEVEL 30 MEQ/L (21-32); CHLORIDE LEVEL 103 MEQ/L (98-107); CREATININE FOR GFR 0.64 MG/DL (0.55-1.30); GLOMERULAR FILTRATION RATE > 60.0 (>45); GLUCOSE, FASTING 98 MG/DL (70-100); POTASSIUM SERUM 3.8 MEQ/L (3.5-5.1); SODIUM LEVEL 137 MEQ/L (136-145)
[2022-01-15 11:23] LABS: ALBUMIN 3.9 GM/DL (3.2-5.2); ALT/SGPT 22 U/L (12-78); BILIRUBIN,TOTAL 0.6 MG/DL (0.2-1.0); CALCIUM LEVEL 9.6 MG/DL (8.8-10.2); FERRITIN 46 NG/ML (8-252); NT-PRO BNP 45 PG/ML (<125); TOTAL PROTEIN 7.1 GM/DL (6.4-8.2)
[2022-01-15 11:24] LABS: MAU/CREAT RATIO 10.6 MCG/MG (0.0-30.0)
[2022-01-15 12:11] LABS: PTH INTACT 36.5 PG/ML (18.5-88.0); TOTAL 25(OH) VITAMIN D 23.8 NG/ML (30.0-100.0)
== END ==
LOC: M WUC 08:09
PROVIDERS: ATTEND Family Medicine
DX: D75.89 Other specified diseases of blood and blood-forming organs (principal); R73.01 Impaired fasting glucose; I10 Essential (primary) hypertension; E55.9 Vitamin D deficiency, unspecified

== ENCOUNTER → 2022-02-27 | Outpatient (CLI) | payer OTHER | LOC: M RAD 16:25 | PROVIDERS: ATTEND Neurological Surgery | DX: G83.4 Cauda equina syndrome (principal) ==

== ENCOUNTER → 2022-05-09 | Outpatient (CLI) | payer MEDICARE, OTHER ==
[~2022-05-09] MED LIST changes: +OZEM2INJ
== END ==
LOC: M PAIN 08:00
PROVIDERS: ATTEND Anesthesiology
DX: M96.1 Postlaminectomy syndrome, not elsewhere classified (principal); M51.16 Intervertebral disc disorders with radiculopathy, lumbar region; M48.061 Spinal stenosis, lumbar region without neurogenic claudication; M54.2 Cervicalgia; M79.10 Myalgia, unspecified site; M79.18 Myalgia, other site; I10 Essential (primary) hypertension; E66.9 Obesity, unspecified; E78.5 Hyperlipidemia, unspecified; M17.0 Bilateral primary osteoarthritis of knee; Z96.653 Presence of artificial knee joint, bilateral; I35.1 Nonrheumatic aortic (valve) insufficiency; J44.9 Chronic obstructive pulmonary disease, unspecified; M47.812 Spondylosis without myelopathy or radiculopathy, cervical region; F17.200 Nicotine dependence, unspecified, uncomplicated; Z79.899 Other long term (current) drug therapy; Z85.828 Personal history of other malignant neoplasm of skin; Z88.8 Allergy status to other drugs, medicaments and biological substances

== ENCOUNTER → 2022-05-15 | Outpatient (CLI) | payer MEDICARE, OTHER | LOC: M SOG 07:52 | PROVIDERS: ATTEND Physician Assistant | DX: M19.041 Primary osteoarthritis, right hand (principal); M19.042 Primary osteoarthritis, left hand; M79.641 Pain in right hand; M79.642 Pain in left hand ==

== ENCOUNTER → 2022-05-16 | Outpatient (CLI) | payer MEDICARE, OTHER | LOC: M LABSMTC 10:05 | PROVIDERS: ATTEND Anesthesiology | DX: Z01.818 Encounter for other preprocedural examination (principal) ==

== ENCOUNTER 2022-05-21 06:44 | Day surgery (SDC) | payer MEDICARE, OTHER ==
[~2022-05-21] VITALS: Ht 160 cm; Wt 98.4 kg
[~2022-05-21 06:44] MED LIST changes: +LIDOCAINE W/EPINEPHRINE 1% 20ML VIAL XX ONE; +SODIUM BICARBONATE 8.4% INJ 50MEQ 50ML VIAL XX ONE
[2022-05-21] MEDS ORDERED: BUPIVACAINE HCL 0.25% 30ML VIAL As Ordered ONE (08:41)
[2022-05-21] MEDS ORDERED: LIDOCAINE 1% SDV 30ML VIAL As Ordered ONE (08:41)
[2022-05-21] MEDS ORDERED: BACITRACIN OINTMENT 30GM TUBE As Ordered ONE (09:17)
[2022-05-21 09:53] VITALS: BP 142/63
[2022-05-21] MEDS ORDERED: PERC5TAB12 PO (09:56)
== END 2022-05-21 10:26 | disposition home or self-care (01) ==
LOC: M SDC 06:44
PROVIDERS: ATTEND Orthopaedic Surgery Hand Surgery
DX: M65.312 Trigger thumb, left thumb (principal); M65.322 Trigger finger, left index finger; M65.332 Trigger finger, left middle finger

== ENCOUNTER → 2022-06-01 | Outpatient (CLI) | payer MEDICARE, MEDICAID ==
[~2022-06-01] MED LIST changes: +BENZ200C70 PO; +DHEA50TA2 PO; +DULO1CAP5 PO; +IPRA0.00; +LIDO15SO PO; -LIDOCAINE W/EPINEPHRINE 1% 20ML VIAL XX ONE; +OMEG10002 PO; +ONDA4TAB6 PO; +PRED20TA PO; +PROA1AER2 INH; -SODIUM BICARBONATE 8.4% INJ 50MEQ 50ML VIAL XX ONE; +ULTR5TAB PO
== END ==
LOC: M PLAIMG 15:38
PROVIDERS: ATTEND Physician Assistant
DX: M25.511 Pain in right shoulder (principal)

== ENCOUNTER 2022-06-19 12:17 | Emergency (ER) | payer MEDICARE, MEDICAID ==
[~2022-06-19] VITALS: Ht 160 cm; Wt 97.0 kg
[~2022-06-19 12:17] MED LIST changes: -BENZ200C70 PO; -DHEA50TA2 PO; -DULO1CAP5 PO; -IPRA0.00; -LIDO15SO PO; -OMEG10002 PO; -ONDA4TAB6 PO; -PRED20TA PO; -PROA1AER2 INH; -ULTR5TAB PO
[2022-06-19] MEDS ORDERED: ALBUTEROL 90 MCG/ACT 8GM HFA INHALER INH ONE (14:50)
[2022-06-19] MEDS ORDERED: BENZONATATE 100MG CAPSULE PO ONE (14:50)
[2022-06-19] MEDS ORDERED: LIDOCAINE VISCOUS 2% SOLN 15ML UDC SS ONE (14:50)
[2022-06-19] MEDS ORDERED: predniSONE 20 MG TAB PO ONE (14:50)
[2022-06-19] MEDS ORDERED: PRED20TA PO (15:44)
[2022-06-19] MEDS ORDERED: LIDO15SO4 PO (15:44)
[2022-06-19] MEDS ORDERED: PROA1AER2 INH (15:44)
[2022-06-19] MEDS ORDERED: BENZ200C70 PO (15:44)
[2022-06-19 15:51] VITALS: BP 146/76
== END 2022-06-19 15:58 | disposition home or self-care (01) ==
LOC: M ED 12:17
DX: J06.9 Acute upper respiratory infection, unspecified (principal); R07.0 Pain in throat; E11.9 Type 2 diabetes mellitus without complications; I10 Essential (primary) hypertension; J44.9 Chronic obstructive pulmonary disease, unspecified; G47.33 Obstructive sleep apnea (adult) (pediatric); F17.200 Nicotine dependence, unspecified, uncomplicated; Z79.899 Other long term (current) drug therapy
CPT/HCPCS: 71046; 87486; 87581; 87633; 87798; 87880; 94640; 99283; J7512

== ENCOUNTER → 2022-06-21 | Outpatient (CLI) | payer MEDICARE, MEDICAID ==
[~2022-06-21] MED LIST changes: +BENZ200C70 PO; +DHEA50TA2 PO; +DULO1CAP5 PO; +IPRA0.00; +LIDO15SO4 PO; +OMEG10002 PO; +ONDA4TAB6 PO; +PRED20TA PO; +PROA1AER2 INH; +ULTR5TAB PO
== END ==
LOC: M LABSMTC 08:57
PROVIDERS: ATTEND Anesthesiology
DX: Z11.52 Encounter for screening for COVID-19 (principal)

== ENCOUNTER → 2022-06-29 | Outpatient (CLI) | payer MEDICARE, MEDICAID | LOC: M LABSMTC 07:44 | PROVIDERS: ATTEND Anesthesiology | DX: Z01.812 Encounter for preprocedural laboratory examination (principal); Z20.822 Contact with and (suspected) exposure to COVID-19 ==

== ENCOUNTER 2022-07-04 05:58 | Day surgery (SDC) | payer MEDICARE, MEDICAID ==
[~2022-07-04] VITALS: Ht 160 cm; Wt 98.0 kg
[2022-07-04] MEDS ORDERED: LIDOCAINE W/EPINEPHRINE 1% 20ML VIAL XX ONE (06:00)
[2022-07-04] MEDS ORDERED: SODIUM BICARBONATE 8.4% INJ 50MEQ 50ML VIAL XX ONE (06:00)
[2022-07-04] MEDS ORDERED: POLYSPORIN TOPICAL OINTMENT 15GM As Ordered ONE (07:51)
[2022-07-04 08:13] VITALS: BP 138/65
[2022-07-04] MEDS ORDERED: PERC5TAB12 PO (08:15)
== END 2022-07-04 08:23 | disposition home or self-care (01) ==
LOC: M SDC 05:58
PROVIDERS: ATTEND Orthopaedic Surgery Hand Surgery
DX: M65.321 Trigger finger, right index finger (principal); M65.331 Trigger finger, right middle finger

== ENCOUNTER 2022-07-16 13:42 | Emergency (ER) | payer MEDICARE, MEDICAID ==
[~2022-07-16] VITALS: Ht 160 cm; Wt 96.7 kg
[2022-07-16 13:42] VITALS: BP 133/64
== END 2022-07-16 16:24 | disposition left against medical advice (07) ==
LOC: M ED 13:42
DX: Z53.21 Procedure and treatment not carried out due to patient leaving prior to being seen by health care provider (principal)

== ENCOUNTER → 2022-07-18 | Outpatient (CLI) | payer MEDICARE, MEDICAID ==
[~2022-07-18] MED LIST changes: +LIDO15SO PO; -LIDO15SO4 PO
[2022-07-18 11:07] LABS: BASO # 0.1 10^3/uL (0.0-0.2); BASO % 0.5 % (0.0-1.0); EOS # 0.3 10^3/uL (0.0-0.5); EOS % 1.9 % (0.0-3.0); HEMATOCRIT 44.4 % (36.0-47.0); HEMOGLOBIN 14.9 g/dl (12.0-15.5); LYMPH # 2.8 10^3/uL (1.5-5.0); LYMPH % 21.8 % (24.0-44.0); MEAN CORPUSCULAR HEMOGLOBIN 31.4 pg (27.0-33.0); MEAN CORPUSCULAR HGB CONC 33.6 g/dl (32.0-36.5); MEAN CORPUSCULAR VOLUME 93.7 fl (80.0-96.0); MONO # 1.1 10^3/uL (0.0-0.8); MONO % 8.8 % (2.0-8.0); NEUTROPHILS # 8.5 10^3/uL (1.5-8.5); NEUTROPHILS % 65.8 % (36.0-66.0); PLATELET COUNT, AUTOMATED 300 10^3/uL (150-450); RED BLOOD COUNT 4.74 10^6/uL (4.00-5.40); WHITE BLOOD COUNT 12.9 10^3/uL (4.0-10.0)
[2022-07-18 11:27] LABS: LIPASE 28 U/L (12-53)
[2022-07-18 11:29] LABS: AMYLASE 33 U/L (30-118)
[2022-07-18 11:33] LABS: ALBUMIN 3.5 G/DL (3.2-5.2); ALKALINE PHOSPHATASE 81 U/L (46-116); ALT/SGPT 13 U/L (7.0-40); AST/SGOT 16 U/L (<34); BILIRUBIN,TOTAL 0.4 MG/DL (0.3-1.2); BLOOD UREA NITROGEN 8 MG/DL (9-23); CALCIUM LEVEL 9.6 MG/DL (8.3-10.6); CARBON DIOXIDE LEVEL 29 MMOL/L (20-31); CHLORIDE LEVEL 99 MMOL/L (98-107); CREATININE FOR GFR 0.53 MG/DL (0.55-1.30); GLOMERULAR FILTRATION RATE > 60.0 (>45); GLUCOSE, FASTING 84 MG/DL (74-106); POTASSIUM SERUM 3.7 MMOL/L (3.5-5.1); SODIUM LEVEL 136 MMOL/L (136-145); TOTAL PROTEIN 6.6 G/DL (5.7-8.2)
== END ==
LOC: M PLALAB 08:30
PROVIDERS: ATTEND Physician Assistant
DX: R07.0 Pain in throat (principal); R05.1 Acute cough; R11.0 Nausea; Z79.899 Other long term (current) drug therapy

== ENCOUNTER → 2022-08-07 | Outpatient (CLI) | payer MEDICARE, MEDICAID ==
[~2022-08-07] MED LIST changes: +ISOVUE-M 300 61% 15ML VIAL As Ordered ONE; +LIDOCAINE 1% SDV 30ML VIAL As Ordered ONE; +diazePAM 5MG TABLET As Ordered ONE; +methylPREDNISolone SUSP 40MG/ML 1ML VIAL (DEPO MEDROL) As Ordered ONE; +oxyCODONE 5MG TAB As Ordered ONE
== END ==
LOC: M PAIN 09:30
PROVIDERS: ATTEND Anesthesiology
DX: M51.16 Intervertebral disc disorders with radiculopathy, lumbar region (principal); E66.9 Obesity, unspecified; Z68.36 Body mass index [BMI] 36.0-36.9, adult; I10 Essential (primary) hypertension; E78.5 Hyperlipidemia, unspecified; J44.9 Chronic obstructive pulmonary disease, unspecified; G47.33 Obstructive sleep apnea (adult) (pediatric); Z79.899 Other long term (current) drug therapy; Z88.8 Allergy status to other drugs, medicaments and biological substances
CPT/HCPCS: 62323; J1030; Q9967

== ENCOUNTER 2022-08-16 09:30 | Outpatient (RCR) | payer MEDICARE ==
[~2022-08-16 09:30] MED LIST changes: -ISOVUE-M 300 61% 15ML VIAL As Ordered ONE; -LIDOCAINE 1% SDV 30ML VIAL As Ordered ONE; -diazePAM 5MG TABLET As Ordered ONE; -methylPREDNISolone SUSP 40MG/ML 1ML VIAL (DEPO MEDROL) As Ordered ONE; -oxyCODONE 5MG TAB As Ordered ONE
== END 2022-08-19 ==
LOC: M PT 09:30
PROVIDERS: ATTEND Physician Assistant
DX: M25.511 Pain in right shoulder (principal)

== ENCOUNTER → 2022-08-29 | Outpatient (CLI) | payer MEDICARE ==
[~2022-08-29] MED LIST changes: -LOSA100T45 PO; +LOSA100T46 PO; +POTA-298 PO; -POTA1TAB14 PO
== END ==
LOC: M WUC 09:52
PROVIDERS: ATTEND Nurse Practitioner Family
DX: S93.401A Sprain of unspecified ligament of right ankle, initial encounter (principal); X58.XXXA Exposure to other specified factors, initial encounter; Y92.89 Other specified places as the place of occurrence of the external cause; Y93.89 Activity, other specified; Y99.8 Other external cause status

== ENCOUNTER 2022-09-06 08:59 | Outpatient (RCR) | payer MEDICARE | END 2022-09-19 | LOC: M PT 08:59 | PROVIDERS: ATTEND Physician Assistant | DX: M25.511 Pain in right shoulder (principal) ==

== ENCOUNTER → 2022-10-08 | Outpatient (CLI) | payer MEDICARE, MEDICAID | LOC: M WHC 07:42 | PROVIDERS: ATTEND Physician Assistant | DX: Z12.31 Encounter for screening mammogram for malignant neoplasm of breast (principal) ==

== ENCOUNTER → 2022-10-12 | Outpatient (CLI) | payer MEDICARE, MEDICAID | LOC: M PAIN 09:45 | PROVIDERS: ATTEND Nurse Practitioner Family | DX: M47.816 Spondylosis without myelopathy or radiculopathy, lumbar region (principal); M51.16 Intervertebral disc disorders with radiculopathy, lumbar region; E66.9 Obesity, unspecified; Z68.36 Body mass index [BMI] 36.0-36.9, adult; I10 Essential (primary) hypertension; E78.5 Hyperlipidemia, unspecified; J44.9 Chronic obstructive pulmonary disease, unspecified; G47.33 Obstructive sleep apnea (adult) (pediatric); Z79.899 Other long term (current) drug therapy; Z88.8 Allergy status to other drugs, medicaments and biological substances ==

== ENCOUNTER → 2022-12-04 | Outpatient (CLI) | payer MEDICARE, MEDICAID ==
[~2022-12-04] MED LIST changes: +ISOVUE-M 300 61% 15ML VIAL As Ordered ONE; +LIDOCAINE 1% SDV 30ML VIAL As Ordered ONE
== END ==
LOC: M PAIN 09:00
PROVIDERS: ATTEND Anesthesiology
DX: M47.816 Spondylosis without myelopathy or radiculopathy, lumbar region (principal); I10 Essential (primary) hypertension; E66.9 Obesity, unspecified; E78.5 Hyperlipidemia, unspecified; J44.9 Chronic obstructive pulmonary disease, unspecified; M47.812 Spondylosis without myelopathy or radiculopathy, cervical region; K44.9 Diaphragmatic hernia without obstruction or gangrene; G47.33 Obstructive sleep apnea (adult) (pediatric); F17.200 Nicotine dependence, unspecified, uncomplicated; Z79.899 Other long term (current) drug therapy; Z88.8 Allergy status to other drugs, medicaments and biological substances
CPT/HCPCS: 64493; 64494; 64495; J0665; Q9967

== ENCOUNTER → 2023-01-23 | Outpatient (CLI) | payer MEDICARE, MEDICAID ==
[~2023-01-23] MED LIST changes: -ISOVUE-M 300 61% 15ML VIAL As Ordered ONE; -LIDOCAINE 1% SDV 30ML VIAL As Ordered ONE
== END ==
LOC: M PAIN 09:30
PROVIDERS: ATTEND Anesthesiology
DX: M51.16 Intervertebral disc disorders with radiculopathy, lumbar region (principal); G89.29 Other chronic pain; F17.200 Nicotine dependence, unspecified, uncomplicated; Z96.653 Presence of artificial knee joint, bilateral; Z88.8 Allergy status to other drugs, medicaments and biological substances; Z79.899 Other long term (current) drug therapy
CPT/HCPCS: 76000; G0463

== ENCOUNTER → 2023-02-27 | Outpatient (CLI) | payer MEDICARE, MEDICAID | LOC: M WHC 10:06 | PROVIDERS: ATTEND Physician Assistant | DX: M81.0 Age-related osteoporosis without current pathological fracture (principal) ==

== ENCOUNTER → 2023-03-01 | Outpatient (CLI) | payer MEDICARE, MEDICAID ==
[~2023-03-01] MED LIST changes: +ISOVUE-M 300 61% 15ML VIAL As Ordered ONE; +LIDOCAINE 1% SDV 30ML VIAL As Ordered ONE; +TRIAMCINOLONE ACETONIDE SUSP 40MG/ML 1ML VIAL As Ordered ONE; +diazePAM 5MG TABLET As Ordered ONE; +oxyCODONE 5MG TAB As Ordered ONE
== END ==
LOC: M PAIN 08:30
PROVIDERS: ATTEND Anesthesiology
DX: M47.816 Spondylosis without myelopathy or radiculopathy, lumbar region (principal); I10 Essential (primary) hypertension; E66.9 Obesity, unspecified; E78.5 Hyperlipidemia, unspecified; M17.0 Bilateral primary osteoarthritis of knee; I35.1 Nonrheumatic aortic (valve) insufficiency; J44.9 Chronic obstructive pulmonary disease, unspecified; M47.812 Spondylosis without myelopathy or radiculopathy, cervical region; G47.33 Obstructive sleep apnea (adult) (pediatric); Z87.891 Personal history of nicotine dependence; Z79.891 Long term (current) use of opiate analgesic; Z79.899 Other long term (current) drug therapy; Z88.8 Allergy status to other drugs, medicaments and biological substances
CPT/HCPCS: 64493; 64494; J0665; J3301; Q9967

== ENCOUNTER → 2023-03-28 | Outpatient (CLI) | payer MEDICARE, MEDICAID ==
[~2023-03-28] MED LIST changes: -ISOVUE-M 300 61% 15ML VIAL As Ordered ONE; -LIDOCAINE 1% SDV 30ML VIAL As Ordered ONE; -TRIAMCINOLONE ACETONIDE SUSP 40MG/ML 1ML VIAL As Ordered ONE; -diazePAM 5MG TABLET As Ordered ONE; -oxyCODONE 5MG TAB As Ordered ONE
== END ==
LOC: M RAD 08:33
PROVIDERS: ATTEND Physician Assistant
DX: Z87.891 Personal history of nicotine dependence (principal)

== ENCOUNTER → 2023-04-24 | Outpatient (CLI) | payer MEDICARE, MEDICAID | LOC: M PAIN 10:00 | PROVIDERS: ATTEND Anesthesiology | DX: M96.1 Postlaminectomy syndrome, not elsewhere classified (principal); G89.29 Other chronic pain; M54.50 Low back pain, unspecified; M17.0 Bilateral primary osteoarthritis of knee; Z87.891 Personal history of nicotine dependence; Z79.891 Long term (current) use of opiate analgesic; Z79.899 Other long term (current) drug therapy; Z88.8 Allergy status to other drugs, medicaments and biological substances ==

== ENCOUNTER → 2023-04-30 | Outpatient (CLI) | payer MEDICARE, MEDICAID ==
[2023-04-30 09:48] LABS: BASO % 0.4 % (0.0-1.0); EOS # 0.2 10^3/uL (0.0-0.5); HEMATOCRIT 44.4 % (36.0-47.0); HEMOGLOBIN 14.9 g/dl (12.0-15.5); LYMPH # 2.7 10^3/uL (1.5-5.0); MEAN CORPUSCULAR HEMOGLOBIN 31.3 pg (27.0-33.0); MEAN CORPUSCULAR HGB CONC 33.6 g/dl (32.0-36.5); MEAN CORPUSCULAR VOLUME 93.3 fl (80.0-96.0); MONO # 0.8 10^3/uL (0.0-0.8); MONO % 9.6 % (2.0-8.0); NEUTROPHILS # 4.2 10^3/uL (1.5-8.5); NEUTROPHILS % 53.4 % (36.0-66.0); PLATELET COUNT, AUTOMATED 221 10^3/uL (150-450); RED BLOOD COUNT 4.76 10^6/uL (4.00-5.40); WHITE BLOOD COUNT 7.8 10^3/uL (4.0-10.0)
[2023-04-30 09:51] LABS: HEMOGLOBIN A1c 5.7 % (4.0-6.0)
[2023-04-30 10:19] LABS: ALBUMIN 3.6 G/DL (3.2-5.2); ALKALINE PHOSPHATASE 86 U/L (46-116); ALT/SGPT 13 U/L (7.0-40); AST/SGOT 10 U/L (<34); BILIRUBIN,TOTAL 0.5 MG/DL (0.3-1.2); BLOOD UREA NITROGEN 18 MG/DL (9-23); CALCIUM LEVEL 9.2 MG/DL (8.3-10.6); CARBON DIOXIDE LEVEL 30 MMOL/L (20-31); CHLORIDE LEVEL 107 MMOL/L (98-107); CHOLESTEROL LEVEL 150 MG/DL (<200); CHOLESTEROL RISK RATIO 2.76 (<5); CREATININE FOR GFR 0.57 MG/DL (0.55-1.30); FERRITIN 34.3 NG/ML (7.3-270.7); FREE T4 1.21 NG/DL (0.89-1.76); GLOMERULAR FILTRATION RATE > 60.0 (>45); GLUCOSE, FASTING 100 MG/DL (74-106); HDL CHOLESTEROL 54.3 MG/DL (>40); LDL CHOLESTEROL 76.3 MG/DL (<100); NON-HDL-C 95.7 MG/DL; POTASSIUM SERUM 3.8 MMOL/L (3.5-5.1); SODIUM LEVEL 139 MMOL/L (136-145); THYROID STIMULATING HORMONE 1.205 uIU/ML (0.55-4.78); TOTAL 25(OH) VITAMIN D 30.6 NG/ML (20.0-100.0); TOTAL PROTEIN 6.4 G/DL (5.7-8.2); TRIGLYCERIDES LEVEL 97 MG/DL (<150); VITAMIN B12 LEVEL 756 PG/ML (211-911)
== END ==
LOC: M WUC 08:11
PROVIDERS: ATTEND Physician Assistant
DX: Z00.00 Encounter for general adult medical examination without abnormal findings (principal); E66.9 Obesity, unspecified; E55.9 Vitamin D deficiency, unspecified; Z23 Encounter for immunization; I10 Essential (primary) hypertension; D50.9 Iron deficiency anemia, unspecified

== ENCOUNTER → 2023-06-24 | Outpatient (CLI) | payer MEDICARE, MEDICAID ==
[~2023-06-24] MED LIST changes: -LIDO15SO PO; +LIDO15SO8 PO
== END ==
LOC: M PAIN 09:15
PROVIDERS: ATTEND Nurse Practitioner Family
DX: M96.1 Postlaminectomy syndrome, not elsewhere classified (principal); G89.29 Other chronic pain; M54.50 Low back pain, unspecified; M54.2 Cervicalgia; I10 Essential (primary) hypertension; E66.9 Obesity, unspecified; E78.5 Hyperlipidemia, unspecified; J44.9 Chronic obstructive pulmonary disease, unspecified; G47.33 Obstructive sleep apnea (adult) (pediatric); M19.072 Primary osteoarthritis, left ankle and foot; Z68.38 Body mass index [BMI] 38.0-38.9, adult; Z96.653 Presence of artificial knee joint, bilateral; Z87.891 Personal history of nicotine dependence; Z79.891 Long term (current) use of opiate analgesic; Z79.899 Other long term (current) drug therapy; Z88.8 Allergy status to other drugs, medicaments and biological substances
CPT/HCPCS: 72072; G0463

== ENCOUNTER → 2023-06-24 | Outpatient (CLI) | payer MEDICARE, MEDICAID ==
[~2023-06-24] MED LIST changes: +LIDO15SO PO; -LIDO15SO8 PO
== END ==
LOC: M RAD 10:08
PROVIDERS: ATTEND Nurse Practitioner Family
DX: M96.1 Postlaminectomy syndrome, not elsewhere classified (principal)

== ENCOUNTER → 2023-07-19 | Outpatient (CLI) | payer MEDICARE, MEDICAID ==
[~2023-07-19] MED LIST changes: -LIDO15SO PO; +LIDO15SO8 PO
== END ==
LOC: M PLARAD 12:26
PROVIDERS: ATTEND Nurse Practitioner Family
DX: M51.34 Other intervertebral disc degeneration, thoracic region (principal); M51.36 Other intervertebral disc degeneration, lumbar region; M48.061 Spinal stenosis, lumbar region without neurogenic claudication; Z98.1 Arthrodesis status

== ENCOUNTER → 2023-07-23 | Outpatient (CLI) | payer MEDICARE, MEDICAID | LOC: M PAIN 14:00 | PROVIDERS: ATTEND Nurse Practitioner Family | DX: M96.1 Postlaminectomy syndrome, not elsewhere classified (principal); G89.29 Other chronic pain; I10 Essential (primary) hypertension; E66.9 Obesity, unspecified; E78.5 Hyperlipidemia, unspecified; M17.0 Bilateral primary osteoarthritis of knee; G47.33 Obstructive sleep apnea (adult) (pediatric); Z87.891 Personal history of nicotine dependence; Z79.891 Long term (current) use of opiate analgesic; Z79.899 Other long term (current) drug therapy; Z88.8 Allergy status to other drugs, medicaments and biological substances; Z68.38 Body mass index [BMI] 38.0-38.9, adult ==

== ENCOUNTER → 2023-09-02 | Outpatient (CLI) | payer MEDICARE, MEDICAID ==
[~2023-09-02] MED LIST changes: -RAMI1CAP24 PO; +RAMI5CAP60 PO
== END ==
LOC: M PAIN 09:45
PROVIDERS: ATTEND Nurse Practitioner Family
DX: M96.1 Postlaminectomy syndrome, not elsewhere classified (principal); G89.29 Other chronic pain; I10 Essential (primary) hypertension; E66.9 Obesity, unspecified; E78.2 Mixed hyperlipidemia; M17.0 Bilateral primary osteoarthritis of knee; J44.9 Chronic obstructive pulmonary disease, unspecified; M47.812 Spondylosis without myelopathy or radiculopathy, cervical region; G47.33 Obstructive sleep apnea (adult) (pediatric); Z87.891 Personal history of nicotine dependence; Z79.891 Long term (current) use of opiate analgesic; Z79.899 Other long term (current) drug therapy; Z88.8 Allergy status to other drugs, medicaments and biological substances; Z68.37 Body mass index [BMI] 37.0-37.9, adult

== ENCOUNTER 2023-09-10 09:34 | Outpatient (RCR) | payer MEDICARE, MEDICAID | END 2023-09-20 | LOC: M PT 09:34 | PROVIDERS: ATTEND Physician Assistant | DX: M25.511 Pain in right shoulder (principal) ==

== ENCOUNTER → 2023-09-20 | Outpatient (CLI) | payer MEDICARE, MEDICAID | LOC: M WUC 09:35 | PROVIDERS: ATTEND Nurse Practitioner Family | DX: R05.9 Cough, unspecified (principal) ==

== ENCOUNTER 2023-10-01 09:38 | Outpatient (RCR) | payer MEDICARE, MEDICAID ==
[~2023-10-01 09:38] MED LIST changes: +FLUO-365 PO; -FLUO20CA22 PO; +ONDA-282 PO; +ONDA-284 PO; -ONDA4TAB6 PO; -ONDA8TAB8 PO
== END 2023-10-20 ==
LOC: M PT 09:38
PROVIDERS: ATTEND Physician Assistant
DX: M25.511 Pain in right shoulder (principal)

== ENCOUNTER → 2023-10-11 | Outpatient (CLI) | payer MEDICARE, MEDICAID | LOC: M WHC 08:17 | PROVIDERS: ATTEND Physician Assistant | DX: Z12.31 Encounter for screening mammogram for malignant neoplasm of breast (principal) ==

== ENCOUNTER → 2024-01-24 | Outpatient (REF) | payer MEDICARE | LOC: M LAB REF 21:56 | PROVIDERS: ATTEND Physician Assistant | DX: R30.0 Dysuria (principal) ==

== ENCOUNTER → 2024-01-30 | Outpatient (REF) | payer MEDICARE, MEDICAID | LOC: M SFHCPLAZ 16:43 | PROVIDERS: ATTEND Physician Assistant | DX: R30.0 Dysuria (principal) ==

== ENCOUNTER → 2024-03-03 | Outpatient (CLI) | payer MEDICARE, MEDICAID ==
[~2024-03-03] MED LIST changes: +CLOT1CRE71 TOP; +CYMB60CA4 PO; +FLON1SPR; -IPRA0.00; +IPRA0.00 INH; +MIRA3350 PO; +MUPI2OI EXT; +NYST-13 EXT; +OXYC5CAP56 PO; +PHEN30CA21 PO; +TELM1TAB35 PO; +THERTAB52 PO
== END ==
LOC: M PAIN 16:30
PROVIDERS: ATTEND Anesthesiology
DX: Z01.818 Encounter for other preprocedural examination (principal); M96.1 Postlaminectomy syndrome, not elsewhere classified; G89.29 Other chronic pain; M54.50 Low back pain, unspecified; I10 Essential (primary) hypertension; E66.9 Obesity, unspecified; E78.2 Mixed hyperlipidemia; M17.0 Bilateral primary osteoarthritis of knee; Z96.653 Presence of artificial knee joint, bilateral; J44.9 Chronic obstructive pulmonary disease, unspecified; M47.812 Spondylosis without myelopathy or radiculopathy, cervical region; M19.072 Primary osteoarthritis, left ankle and foot; G47.33 Obstructive sleep apnea (adult) (pediatric); Z87.891 Personal history of nicotine dependence; Z79.891 Long term (current) use of opiate analgesic; Z79.899 Other long term (current) drug therapy; Z88.8 Allergy status to other drugs, medicaments and biological substances

== ENCOUNTER → 2024-03-06 | Outpatient (CLI) | payer MEDICARE, MEDICAID ==
[2024-03-06 13:18] LABS: BASO # 0.1 10^3/uL (0.0-0.2); BASO % 0.5 % (0.0-1.0); EOS # 0.3 10^3/uL (0.0-0.5); EOS % 2.8 % (0.0-3.0); HEMATOCRIT 43.7 % (36.0-47.0); HEMOGLOBIN 14.6 g/dl (12.0-15.5); LYMPH # 3.3 10^3/uL (1.5-5.0); LYMPH % 36.1 % (24.0-44.0); MEAN CORPUSCULAR HEMOGLOBIN 31.3 pg (27.0-33.0); MEAN CORPUSCULAR HGB CONC 33.4 g/dl (32.0-36.5); MEAN CORPUSCULAR VOLUME 93.8 fl (80.0-96.0); MONO # 0.7 10^3/uL (0.0-0.8); MONO % 7.9 % (2.0-8.0); NEUTROPHILS # 4.8 10^3/uL (1.5-8.5); NEUTROPHILS % 52.3 % (36.0-66.0); PLATELET COUNT, AUTOMATED 247 10^3/uL (150-450); RED BLOOD COUNT 4.66 10^6/uL (4.00-5.40); WHITE BLOOD COUNT 9.2 10^3/uL (4.0-10.0)
[2024-03-06 13:25] LABS: INR 0.86; PARTIAL THROMBOPLASTIN TIME 28.1 SECONDS (24.8-34.2); PROTHROMBIN TIME 12.1 SECONDS (12.5-14.5)
[2024-03-06 13:49] LABS: ALBUMIN 3.8 G/DL (3.2-5.2); ALKALINE PHOSPHATASE 84 U/L (35-104); ALT/SGPT 18 U/L (7.0-40); AST/SGOT 15 U/L (<34); BILIRUBIN,TOTAL 0.4 MG/DL (0.3-1.2); BLOOD UREA NITROGEN 13 MG/DL (9-23); CALCIUM LEVEL 10.1 MG/DL (8.3-10.6); CARBON DIOXIDE LEVEL 27 MMOL/L (20-31); CHLORIDE LEVEL 104 MMOL/L (98-107); CREATININE FOR GFR 0.54 MG/DL (0.55-1.30); GLOMERULAR FILTRATION RATE > 60.0 (>45); GLUCOSE, FASTING 94 MG/DL (74-106); POTASSIUM SERUM 3.9 MMOL/L (3.5-5.1); SODIUM LEVEL 140 MMOL/L (136-145)
[2024-03-06 13:59] LABS: HEMOGLOBIN A1c 5.8 % (4.0-6.0)
[2024-03-14 01:45] LABS: ALPHA 2-MACROGLOBULINS,QN 209 mg/dL (106-279); ALT (SGPT) P5P 15 U/L (6-29); APOLIPOPROTEIN A-1 152 mg/dL (101-198); BILIRUBIN, TOTAL 0.4 mg/dL (0.2-1.2); FIBROSIS SCORE 0.22; FIBROSIS STAGE NO FIBROSIS (F0); GGT 37 U/L (3-65); HAPTOGLOBIN 157 mg/dL (43-212); NECROINFLAM ACT GRADE NO ACTIVITY (A0); NECROINFLAM ACT SCORE 0.05
== END ==
LOC: M PLAIMG 11:38
PROVIDERS: ATTEND Family Medicine
DX: Z01.818 Encounter for other preprocedural examination (principal); R73.01 Impaired fasting glucose; I10 Essential (primary) hypertension; J98.11 Atelectasis

== ENCOUNTER 2024-03-24 07:15 | Observation (INO) | payer MEDICARE, MEDICAID ==
[~2024-03-24] VITALS: Ht 160 cm; Wt 104.3 kg
[~2024-03-24 07:15] MED LIST changes: +GLYCOPYRROLATE INJ 0.2 MG/ML 2 ML VIAL As Ordered ONE; +LIDOCAINE 2% 100MG/5ML SDV (FOR ANES.) As Ordered ONE; +MIDAZOLAM INJ 2MG/2ML VIAL As Ordered ONE; +ONDANSETRON 4MG 2ML VIAL As Ordered ONE; +fentaNYL 100 MCG/2 ML INJECTION As Ordered ONE; +propofoL 200 MG/20 ML VIAL As Ordered ONE
[2024-03-24] MEDS: ceFAZolin SOD 2 GM in IV 1 EA IV ONE (09:36)
[2024-03-24] MEDS: LIDOCAINE W/EPINEPHRINE 1% 20ML VIAL As Ordered ONE (10:48)
[2024-03-24] MEDS: ISOVUE-M 300 61% 15ML VIAL As Ordered ONE (10:48)
[2024-03-24] MEDS ORDERED: ONDANSETRON 4MG 2ML VIAL IV PRN (11:20)
[2024-03-24] MEDS ORDERED: HYDROMORPHONE HCL 0.5 MG/ 0.5 ML SYRINGE IV PRN (11:20)
[2024-03-24] MEDS ORDERED: fentaNYL 100 MCG/2 ML INJECTION IV PRN (11:20)
[2024-03-24] MEDS: oxyCODONE 5MG TAB PO PRN (12:41)
[2024-03-24 14:45] VITALS: BP 140/81; TEMP 98.1; O2SAT 95
[2024-03-24 15:02] LABS: BLOOD UREA NITROGEN 13 MG/DL (9-23); CALCIUM LEVEL 9.9 MG/DL (8.3-10.6); CARBON DIOXIDE LEVEL 29 MMOL/L (20-31); CHLORIDE LEVEL 107 MMOL/L (98-107); CREATININE FOR GFR 0.62 MG/DL (0.55-1.30); GLOMERULAR FILTRATION RATE > 60.0 (>45); GLUCOSE, FASTING 134 MG/DL (74-106); SODIUM LEVEL 143 MMOL/L (136-145)
[2024-03-24] MEDS: NS (Normal Saline) 0.9% 1,000 ML IV SCH ×2 (15:04)
[2024-03-24 15:45] VITALS: BP 156/77; TEMP 97.7; O2SAT 96
[2024-03-24] MEDS ORDERED: IPRATROPIUM 0.5MG/ALBUTEROL 2.5MG INH SOL UD 3ML (DUONEB) NEB PRN (17:10)
[2024-03-24] MEDS: DULoxetine 30MG CAPSULE (CYMBALTA) PO SCH (17:35)
[2024-03-24] MEDS: PERCOCET 5MG/325MG TAB PO PRN (19:44)
[2024-03-24 19:48] VITALS: BP 118/59; TEMP 97.5; O2SAT 95
[2024-03-24 20:00] VITALS: BP 108/65; TEMP 97.3; O2SAT 92
[2024-03-25] VITALS: BP 127/57; TEMP 97.7; O2SAT 93
[2024-03-25 04:00] VITALS: BP 141/77; TEMP 97.2; O2SAT 92
[2024-03-25] MEDS: PERCOCET 5MG/325MG TAB PO PRN (05:18)
[2024-03-25 08:00] VITALS: BP 142/65; TEMP 97.3; O2SAT 92
[2024-03-25] MEDS: CHLORTHALIDONE 12.5MG PER 1/2 TABLET PO SCH (08:15)
[2024-03-25] MEDS: ATORVASTATIN 20 MG TAB PO SCH (08:15)
== END 2024-03-25 09:03 | disposition home or self-care (01) ==
LOC: M SDC 07:15 → M RR INP 07:16 → M MSPAV 14:47
PROVIDERS: ADMIT Student in an Organized Health Care Education/Training Program; ATTEND Anesthesiology
DX: M96.1 Postlaminectomy syndrome, not elsewhere classified (principal); M54.50 Low back pain, unspecified; G89.29 Other chronic pain; Z98.890 Other specified postprocedural states; R32 Unspecified urinary incontinence; I10 Essential (primary) hypertension; E78.5 Hyperlipidemia, unspecified; G47.30 Sleep apnea, unspecified; J44.9 Chronic obstructive pulmonary disease, unspecified; K21.9 Gastro-esophageal reflux disease without esophagitis; Z96.653 Presence of artificial knee joint, bilateral; Z90.79 Acquired absence of other genital organ(s); Z79.899 Other long term (current) drug therapy
CPT/HCPCS: 36415; 63650; 76000; 80048; 83735; C1826; G0378; J0665; J0690; J2250; J2405; J3010

== ENCOUNTER → 2024-03-25 | Outpatient (CLI) | payer MEDICARE, MEDICAID ==
[~2024-03-25] MED LIST changes: -GLYCOPYRROLATE INJ 0.2 MG/ML 2 ML VIAL As Ordered ONE; -LIDOCAINE 2% 100MG/5ML SDV (FOR ANES.) As Ordered ONE; -MIDAZOLAM INJ 2MG/2ML VIAL As Ordered ONE; -ONDANSETRON 4MG 2ML VIAL As Ordered ONE; -fentaNYL 100 MCG/2 ML INJECTION As Ordered ONE; -propofoL 200 MG/20 ML VIAL As Ordered ONE
== END ==
LOC: M PAIN 09:30
PROVIDERS: ATTEND Anesthesiology
DX: M96.1 Postlaminectomy syndrome, not elsewhere classified (principal)

== ENCOUNTER → 2024-03-27 | Outpatient (CLI) | payer MEDICARE, MEDICAID | LOC: M PAIN 12:15 | PROVIDERS: ATTEND Anesthesiology | DX: M96.1 Postlaminectomy syndrome, not elsewhere classified (principal) ==

== ENCOUNTER → 2024-03-31 | Outpatient (CLI) | payer MEDICARE, MEDICAID | LOC: M PAIN 15:00 | PROVIDERS: ATTEND Anesthesiology | DX: M96.1 Postlaminectomy syndrome, not elsewhere classified (principal) ==

== ENCOUNTER → 2024-04-03 | Outpatient (CLI) | payer MEDICARE, MEDICAID | LOC: M PAIN 17:30 | PROVIDERS: ATTEND Anesthesiology | DX: M96.1 Postlaminectomy syndrome, not elsewhere classified (principal); Z53.9 Procedure and treatment not carried out, unspecified reason ==

== ENCOUNTER → 2024-04-07 | Outpatient (CLI) | payer MEDICARE, MEDICAID | LOC: M PAIN 09:30 | PROVIDERS: ATTEND Anesthesiology | DX: M96.1 Postlaminectomy syndrome, not elsewhere classified (principal); I10 Essential (primary) hypertension; E66.9 Obesity, unspecified; E78.2 Mixed hyperlipidemia; J44.9 Chronic obstructive pulmonary disease, unspecified; M47.812 Spondylosis without myelopathy or radiculopathy, cervical region; G47.33 Obstructive sleep apnea (adult) (pediatric); Z87.891 Personal history of nicotine dependence; Z79.891 Long term (current) use of opiate analgesic; Z79.899 Other long term (current) drug therapy; Z88.8 Allergy status to other drugs, medicaments and biological substances ==

== ENCOUNTER → 2024-05-05 | Outpatient (CLI) | payer MEDICARE, MEDICAID | LOC: M PAIN 17:00 | PROVIDERS: ATTEND Anesthesiology | DX: M96.1 Postlaminectomy syndrome, not elsewhere classified (principal); G89.29 Other chronic pain; Z79.899 Other long term (current) drug therapy; Z85.828 Personal history of other malignant neoplasm of skin; Z87.891 Personal history of nicotine dependence; Z88.8 Allergy status to other drugs, medicaments and biological substances ==

== ENCOUNTER → 2024-05-14 | Outpatient (CLI) | payer MEDICARE, MEDICAID | LOC: M PAIN 09:45 | PROVIDERS: ATTEND Anesthesiology | DX: M96.1 Postlaminectomy syndrome, not elsewhere classified (principal); G89.29 Other chronic pain; I10 Essential (primary) hypertension; E78.2 Mixed hyperlipidemia; J44.9 Chronic obstructive pulmonary disease, unspecified; Z87.891 Personal history of nicotine dependence; Z79.891 Long term (current) use of opiate analgesic; Z79.899 Other long term (current) drug therapy; Z88.8 Allergy status to other drugs, medicaments and biological substances ==

== ENCOUNTER 2024-06-18 14:11 | Emergency (ER) | payer MEDICARE, MEDICAID ==
[~2024-06-18] VITALS: Ht 160 cm; Wt 102.9 kg
[2024-06-18 15:12] LABS: BASO % 0.4 % (0.0-1.0); EOS % 0.4 % (0.0-3.0); HEMATOCRIT 45.2 % (36.0-47.0); LYMPH # 1.5 10^3/uL (1.5-5.0); LYMPH % 18.2 % (24.0-44.0); MEAN CORPUSCULAR HEMOGLOBIN 30.5 pg (27.0-33.0); MEAN CORPUSCULAR HGB CONC 33.2 g/dl (32.0-36.5); MEAN CORPUSCULAR VOLUME 91.9 fl (80.0-96.0); MONO # 1.2 10^3/uL (0.0-0.8); MONO % 15.2 % (2.0-8.0); NEUTROPHILS # 5.3 10^3/uL (1.5-8.5); NEUTROPHILS % 65.4 % (36.0-66.0); PLATELET COUNT, AUTOMATED 197 10^3/uL (150-450); RED BLOOD COUNT 4.92 10^6/uL (4.00-5.40); WHITE BLOOD COUNT 8.1 10^3/uL (4.0-10.0)
[2024-06-18 15:22] LABS: INR 0.97; PROTHROMBIN TIME 13.2 SECONDS (12.5-14.5)
[2024-06-18 15:41] LABS: CK-MB VALUE MASS < 1.0 NG/ML (<3.6)
[2024-06-18 15:43] LABS: ALBUMIN 3.7 G/DL (3.2-5.2); ALKALINE PHOSPHATASE 81 U/L (35-104); ALT/SGPT 30 U/L (7.0-40); AST/SGOT 27 U/L (<34); BILIRUBIN,DIRECT 0.1 MG/DL (<0.4); BILIRUBIN,TOTAL 0.4 MG/DL (0.3-1.2); BLOOD UREA NITROGEN 10 MG/DL (9-23); CALCIUM LEVEL 9.1 MG/DL (8.3-10.6); CARBON DIOXIDE LEVEL 25 MMOL/L (20-31); CHLORIDE LEVEL 104 MMOL/L (98-107); CPK CREATINE PHOSPHOKINASE 90 U/L (34-145); CREATININE FOR GFR 0.53 MG/DL (0.55-1.30); GLOMERULAR FILTRATION RATE > 60.0 (>45); GLUCOSE, FASTING 111 MG/DL (74-106); MB/CK RELATIVE INDEX 1.11 (< OR =4); POTASSIUM SERUM 3.7 MMOL/L (3.5-5.1); SODIUM LEVEL 135 MMOL/L (136-145)
[2024-06-18 15:45] LABS: THYROID STIMULATING HORMONE 0.611 uIU/ML (0.55-4.78); THYROXINE (T4) 8.8 UG/DL (4.5-10.9)
[2024-06-18 15:50] LABS: PROCALCITONIN 0.12 ng/ml
[2024-06-18] MEDS: IPRATROPIUM 0.5MG/ALBUTEROL 2.5MG INH SOL UD 3ML (DUONEB) NEB ONE (17:55)
[2024-06-18] MEDS: NS (Normal Saline) 0.9% 1,000 ML IV ONE (18:41)
[2024-06-18] MEDS: METOCLOPRAMIDE INJ 10MG/2ML VIAL IV ONE (18:51)
[2024-06-18] MEDS: methylPREDNISolone 125MG 2ML VIAL IV ONE (18:51)
[2024-06-18] MEDS: ACETAMINOPHEN *IV* 1,000 MG in IV 1 EA IV ONE (19:04)
[2024-06-18 20:32] VITALS: BP 132/62; TEMP 98.6; O2SAT 96
[2024-06-18] MEDS ORDERED: AMOX875T2 PO (20:44)
[2024-06-18] MEDS ORDERED: PRED20TA PO (20:44)
[2024-06-18] MEDS: KETOROLAC 30 MG/ML 1ML VIAL IV ONE (20:50)
== END 2024-06-18 21:03 | disposition home or self-care (01) ==
LOC: M ED 14:11
DX: J44.1 Chronic obstructive pulmonary disease with (acute) exacerbation (principal); Z79.51 Long term (current) use of inhaled steroids; Z79.2 Long term (current) use of antibiotics; Z79.52 Long term (current) use of systemic steroids; Z79.899 Other long term (current) drug therapy
CPT/HCPCS: 70450; 71046; 80048; 80076; 82550; 82553; 83605; 83880; 84145; 84436; 84443; 84484; 85025; 85610; 87040; 87486; 87581; 87633; 87798; 93005; 96361; 96365; 96375; 99284; J0131; J1885; J2765; J2919

== ENCOUNTER → 2024-08-18 | Outpatient (CLI) | payer MEDICARE, MEDICAID ==
[~2024-08-18] MED LIST changes: +AMOX875T2 PO; -NYST-13 EXT; +NYST0.1C EXT
== END ==
LOC: M RAD 09:22
PROVIDERS: ATTEND Family Medicine
DX: Z87.891 Personal history of nicotine dependence (principal)

== ENCOUNTER → 2024-09-08 | Outpatient (CLI) | payer MEDICARE, MEDICAID | LOC: M SOG 06:52 | PROVIDERS: ATTEND Orthopaedic Surgery | DX: M25.511 Pain in right shoulder (principal) ==

== ENCOUNTER → 2024-10-27 | Outpatient (CLI) | payer MEDICARE, MEDICAID ==
[~2024-10-27] MED LIST changes: -EQL50TAB2 PO; -PRAV40TA2 PO; +PRAV40TA85 PO; +VITA1TAB82 PO
== END ==
LOC: M SOG 10:49
PROVIDERS: ATTEND Orthopaedic Surgery
DX: M19.011 Primary osteoarthritis, right shoulder (principal)

== ENCOUNTER → 2024-12-04 | Outpatient (CLI) | payer MEDICARE, MEDICAID ==
[~2024-12-04] MED LIST changes: +AMLO1TAB24 PO; +DULO1CAP6 PO; -IBUP-1022 PO; +IBUP600T42 PO; -PROZ20CA11 PO; +PROZ20CA12 PO
[2024-12-04 13:55] LABS: BASO # 0.0 10^3/uL (0.0-0.2); BASO % 0.5 % (0.0-1.0); EOS # 0.3 10^3/uL (0.0-0.5); EOS % 3.0 % (0.0-3.0); LYMPH # 3.1 10^3/uL (1.5-5.0); LYMPH % 37.2 % (24.0-44.0); MONO # 0.6 10^3/uL (0.0-0.8); MONO % 7.6 % (2.0-8.0); NEUTROPHILS # 4.3 10^3/uL (1.5-8.5); NEUTROPHILS % 51.0 % (36.0-66.0); PLATELET COUNT, AUTOMATED 241 10^3/uL (150-450)
[2024-12-04 14:05] LABS: ALT/SGPT 22 U/L (7.0-40); AST/SGOT 22 U/L (<34); CALCIUM LEVEL 10.0 MG/DL (8.3-10.6); CARBON DIOXIDE LEVEL 28 MMOL/L (20-31); CHLORIDE LEVEL 106 MMOL/L (98-107); CREATININE FOR GFR 0.57 MG/DL (0.55-1.30); GLOMERULAR FILTRATION RATE > 90.0 (>45); POTASSIUM SERUM 4.2 MMOL/L (3.5-5.1); SODIUM LEVEL 144 MMOL/L (136-145); VITAMIN B12 LEVEL 590 PG/ML (211-911)
== END ==
LOC: M PLALAB 09:20
PROVIDERS: ATTEND Student in an Organized Health Care Education/Training Program
DX: Z01.818 Encounter for other preprocedural examination (principal)

== ENCOUNTER 2024-12-14 06:37 | Day surgery (SDC) | payer MEDICARE, MEDICAID ==
[~2024-12-14] VITALS: Ht 160 cm; Wt 103.9 kg
[2024-12-14] MEDS ORDERED: LR 1,000 ML IV SCH (07:00)
[2024-12-14] MEDS ORDERED: MIDAZOLAM INJ 2 MG/2 ML VIAL As Ordered ONE (07:08)
[2024-12-14] MEDS: FLURBIPROFEN 0.03% OPHTH SOLN 2.5 ML OS SCH (08:29)
[2024-12-14] MEDS: CYCLOPENTOLATE 1% OPHTH SOLN 2 ML BTL OS SCH (08:29)
[2024-12-14] MEDS: TETRACAINE 0.5% OPHTH SOLN 4ML OS SCH (08:29)
[2024-12-14] MEDS: PHENYLEPHRINE 2.5% OPHTH SOL 2ML OS SCH (08:29)
[2024-12-14] MEDS: CEFUROXIME 1 MG/0.1 ML INTRACAMERAL INJ As Ordered ONE (09:54)
[2024-12-14] MEDS: LIDOCAINE 1% SDV 5 ML VIAL As Ordered ONE (09:54)
[2024-12-14 10:22] VITALS: BP 135/67; TEMP 98.2; O2SAT 95
== END 2024-12-14 10:24 | disposition home or self-care (01) ==
LOC: M SDC 06:37
PROVIDERS: ATTEND Ophthalmology
DX: H25.9 Unspecified age-related cataract (principal); G47.30 Sleep apnea, unspecified; Z79.899 Other long term (current) drug therapy; Z90.710 Acquired absence of both cervix and uterus; Z96.653 Presence of artificial knee joint, bilateral
CPT/HCPCS: 66984; J0697; J2250; J3010; V2632

== ENCOUNTER 2025-01-04 10:35 | Day surgery (SDC) | payer MEDICARE, MEDICAID ==
[~2025-01-04] VITALS: Ht 160 cm; Wt 103.4 kg
[~2025-01-04 10:35] MED LIST changes: +LR 1,000 ML IV SCH
[2025-01-04] MEDS: PHENYLEPHRINE 2.5% OPHTH SOL 2ML OD SCH (11:55)
[2025-01-04] MEDS: CYCLOPENTOLATE 1% OPHTH SOLN 2 ML BTL OD SCH (11:55)
[2025-01-04] MEDS: TETRACAINE 0.5% OPHTH SOLN 4ML OD SCH (11:56)
[2025-01-04] MEDS: FLURBIPROFEN 0.03% OPHTH SOLN 2.5 ML OD SCH (11:56)
[2025-01-04] MEDS ORDERED: MIDAZOLAM INJ 2 MG/2 ML VIAL As Ordered ONE (12:20)
[2025-01-04] MEDS: LIDOCAINE 1% SDV 5 ML VIAL As Ordered ONE (13:14)
[2025-01-04] MEDS: CEFUROXIME 1 MG/0.1 ML INTRACAMERAL INJ As Ordered ONE (13:14)
[2025-01-04 13:30] VITALS: BP 140/83; TEMP 97.2; O2SAT 98
== END 2025-01-04 13:46 | disposition home or self-care (01) ==
LOC: M SDC 10:35
PROVIDERS: ATTEND Ophthalmology
DX: H25.11 Age-related nuclear cataract, right eye (principal); I10 Essential (primary) hypertension; J44.9 Chronic obstructive pulmonary disease, unspecified; N39.3 Stress incontinence (female) (male); E78.00 Pure hypercholesterolemia, unspecified; K21.9 Gastro-esophageal reflux disease without esophagitis; G47.30 Sleep apnea, unspecified; Z79.899 Other long term (current) drug therapy; Z90.710 Acquired absence of both cervix and uterus; Z87.891 Personal history of nicotine dependence
CPT/HCPCS: 66984; J0697; J2250; J3010; V2632

== ENCOUNTER → 2025-01-28 | Outpatient (CLI) | payer MEDICARE, MEDICAID ==
[~2025-01-28] MED LIST changes: -LR 1,000 ML IV SCH
== END ==
LOC: M WUC 09:02
PROVIDERS: ATTEND Student in an Organized Health Care Education/Training Program
DX: R06.02 Shortness of breath (principal)